=== PATIENT | male | born 1950 | race Caucasian/White ===

== ENCOUNTER 2017-02-25 09:49 | Inpatient (IN) ==
[2017-02-25] MEDS: SODIUM CHLORIDE 0.9% 1,000 ML IV SCH ×2 (11:45→20:00)
[2017-02-25] MEDS ORDERED: ASPIRIN 325 MG TABLET PO ONE (11:46)
[2017-02-25] MEDS ORDERED: DIAZEPAM 5 MG TABLET PO ONE (11:46)
[2017-02-25] MEDS ORDERED: diphenhydrAMINE CAP 25 MG CAPSULE PO ONE (11:46)
[2017-02-25] MEDS ORDERED: MAGNESIUM SULF RIDER 2 GM in PREMIX 1 EACH IV PRN (11:46)
[2017-02-25] MEDS ORDERED: POTASSIUM CHLORIDE RIDER 10 MEQ in PREMIX 1 EACH IV PRN (11:46)
--- NOTE | 2017-02-25 12:48 | History and Physical Update ---
Sedation H&P Update - History and Physical H&P was reviewed, the patient examined and there: are no changes in the patients condition since last H&P was completed. - Dictation Physical: refer to scanned H&P - Physical Exam Mental Status: alert and oriented Heart: regular rate and rhythm Lung: clear to auscultation Abdomen: within normal limits Vitals: within normal limits - Sedation Plan for Sedation: moderate Patient Consent: Procedure disscussed with patient and patinet has consented., Risks and benefits were discussed with patient,including infection,, bleeding, injury to surrounding structures, seizure, temporary nerve, Patient understands and accepts potential risks/benefits and agrees to, proceed. ASA Class: II Airway Assessment: Class II: Soft palate, uvula, fauces visible
[2017-02-25] MEDS ORDERED: HEPARIN/NACL 0.9% 2 UNITS/ML 1,000 ML IV ONE (12:51)
[2017-02-25] MEDS ORDERED: LIDOCAINE 1% 20 ML VIAL ONE (12:51)
[2017-02-25] MEDS ORDERED: DIAZEPAM 5 MG TABLET ONE (12:55)
[2017-02-25] MEDS ORDERED: diphenhydrAMINE CAP 25 MG CAPSULE ONE (12:55)
[2017-02-25] MEDS ORDERED: MIDAZOLAM 2 MG/2 ML VIAL ONE (13:02)
[2017-02-25] MEDS ORDERED: HYDROmorphone 2 MG/1 ML VIAL ONE (13:02)
[2017-02-25] MEDS ORDERED: ONDANSETRON 4 MG/2 ML VIAL IV PRN (14:10)
[2017-02-25] MEDS ORDERED: ACETAMINOPHEN 325 MG TABLET PO PRN (14:10)
[2017-02-25] MEDS ORDERED: NITROGLYCERIN SL 0.4 MG TABLET SL PRN (14:10)
[2017-02-25] MEDS ORDERED: ZALEPLON 5 MG CAPSULE PO PRN (14:10)
--- NOTE | 2017-02-25 14:10 | Cardiac Catheterization ---
Date of Procedure:: 02/25/17 Pre-op Diagnosis: Chest pain CAD Post-op diagnosis: same Procedure: Cardiac catheterization procedure note #1 left heart catheterization #2 selective coronary angiography #3 left ventriculography #4 GRANADO angiography Omnipaque was used for the procedure Description of procedure Following sterile preparation draping of the right groin, local anesthesia was achieved by infiltration with 1% Xylocaine. Using a Cook needle the right femoral artery was cannulated and a #6 sheath was inserted. A 6 Congolese pigtail catheter was introduced and advanced retrograde across the aortic valve into the left ventricle and the end-diastolic pressure was recorded. Left ventriculography was performed the ODEN projection using 24 cc of contrast material. A pullback recording was made across the aortic valve. The pigtail catheter change for a 6 Congolese left Tana catheter and left coronary angiography was performed in several ODEN and UZBEK projections. The catheter change for a 6 Congolese right Amplatz catheter and right coronary atrophy was performed in the UZBEK projection only. The catheter change for a 6 Congolese VIRIDIANA catheter and GRANADO angiography was performed in the UZBEK projection only. The catheter and sheath were then removed and the femoral arteriotomy site was sealed percutaneously minx closure device with prompt cessation of bleeding and prompt return of femoral and foot pulses. No complications ensued. The patient is transferred to telemetry in stable condition. Hemodynamic data Aortic pressure 127/66 mean of 89 Left ventricle 1 2 04/02 Selective coronary angiography The left main trunk is patent and trifurcates. The LAD is calcified and occluded proximally after the first septal leaflet or newspaper deliverer. There is trickle flow into a diagonal branch. the intermediate branch is totally occluded proximally. A large first OM branch extends out to the apex and has an 80% mid vessel stenosis. The dominant right coronary artery has severe ostial stenosis. The pressure damps 40 mm with catheterization with a right Amplatz or right Tana catheter. The left internal mammary artery is a 2.5 motor non-tortuous patent vessel. Left ventriculography There is anteroapical hypokinesis. Ejection fraction 55%. No mitral regurgitation. Conclusions #1 increased LVEDP 14 #2 anteroapical hypokinesis EF 55% #3 no mitral regurgitation #4 no aortic valve gradient #5 left main trunk patent, trifurcates #6 LAD-calcified, 100% proximal occlusion after first septal #7 occluded diagonal #8 intermediate branch-occluded proximally #9 circumflex system-80% mid large OM branch extends out the apex #10 dominant right coronary-severe ostial stenosis the pressure dams 40 mm with cannulation. The distal vessel provides right to left collaterals to several septal perforators #11 GRANADO-2.5 overnight tortuous patent vessel Disposition The patient has severe three-vessel CAD including an occluded proximal LAD. Ejection fraction 55% with significant myocardium at risk. Dr. Sotelo has been counsulted for multivessel CABG. He will continue normal saline hydration and and BMP rechecked in the morning. Cine pictures were reviewed with his son Jeremiah and [id number] Sonia. In addition, he will require aggressive lifestyle change and risk factor modification. Implants: No implants Anesthesia: moderate conscious sedation Surgeon / Physician: Meng Desai Estimated blood loss: minimal Specimens: none sent Condition: stable Disposition: floor - Medications / Follow-up
[2017-02-25] MEDS ORDERED: DEXTROSE 50% 25 GM/50 ML VIAL IV PRN ×2 (15:52)
[2017-02-25] MEDS ORDERED: GLUCAGON 1 MG VIAL IM PRN ×2 (15:52)
[2017-02-25] MEDS ORDERED: CEFUROXIME INJ 1,500 MG in SODIUM CHLORIDE 0.9% 100 ML IV ONE (15:52)
--- NOTE | 2017-02-25 15:52 | Cardiothoracic Progress Note ---
Cardiothoracic Subjective Interval history: Patient is a 66-year-old man with history of chest discomfort and cardiac catheterization this morning which showed critical coronary disease. Patient was advised to have bypass surgery and I agree with this recommendation. Patient is scheduled for bypass surgery Wednesday morning. Discussed at length with the patient and his family. Exam (Progress Note) - Constitutional Vitals: Period Temp Pulse Resp BP Sys/Taylor Pulse Ox Last 24 Hr 97.9 F-98.0 F 66-76 18-20 130-162/77-88 93-98
[2017-02-25] MEDS ORDERED: SODIUM CHLORIDE 0.9% 1,000 ML IV SCH (16:00)
[2017-02-25 17:14] LABS: Basophils % 0.4 % (0.0-0.8); Eosinophils % 0.8 % (0.00-10.9); Hematocrit 40.1 VOL% (42.0-52.0); Hemoglobin 14.6 GM/DL (14.0-18.0); Immature Granulocytes % 0.2 %; Immature Granulocytes Absolute 0.01 #; Lymphocytes # 1.2 10*3/uL (1.4-4.0); Lymphocytes % 25.6 % (21.2-54.2); Mean Corpuscular HGB Conc 36.4 GM/DL (32-36); Mean Corpuscular Hemoglobin 34 PG (27-34); Mean Corpuscular Volume 92.6 FL (87-102); Mean Platelet Volume 11.2 FL (9.6-12.0); Monocytes # 0.5 10*3/uL (0.11-0.8); Monocytes % 10.5 % (1.7-12.7); Neutrophils % 62.5 % (38.7-73.9); Platelet Count 177 T/CUMM (130-400); Red Blood Count 4.33 MC/CUMM (3.8-5.5); Red Cell Distribution Width 11.4 % (9.3-17.3); White Blood Count 4.9 T/CUMM (4-12)
--- NOTE | 2017-02-25 17:20 | Hospitalist Consult Note ---
Assessment and Plan (1) Coronary artery disease Status: Acute Current Visit: Yes (2) Acid reflux Status: Acute Current Visit: Yes (3) Hypertension Status: Acute Current Visit: Yes (4) Mild bump in glucose at clinic Status: Acute Assessment and plan: Our plan for this patient would be to check a chemistry on this patient monitor his Accu-Cheks before meals and at bedtime hold off on any insulin for now. Check A1c. Have medicines available for DT prophylaxis if needed. Patient is a daily alcohol user Current Visit: Yes History of Present Illness - Consult Narrative Reason for consult: Consult for diabetes/insulin infusion History of present illness: Mr. Hernandes is a 66 year old male with past medical history significant for hypertension coronary artery disease and reflux who had a heart cath today. Patient had significant lesions noted per the heart cath report and was referred to Dr. Sotelo for CABG. Dr. Sotelo consulted us for possible diabetes and insulin management. Patient did have a value of 121 at the clinic. Accu-Chek today is 78. CC: Meng Desai MD - Home Medications and Allergies Home Medications: Home Medications Medication Instructions Recorded Confirmed Type Aspirin [Ecotrin] 81 mg PO DAILY 02/24/17 02/25/17 History Losartan/Hydrochlorothiazide 1 each PO DAILY 02/24/17 02/25/17 History [Losartan-Hctz 50-12.5 mg Tab] Esomeprazole Magnesium [Nexium] 20 mg PO DAILY 02/25/17 02/25/17 History Allergies/Adverse Reactions: Allergies Allergy/AdvReac Type Severity Reaction Status Date / Time No Known Allergies Allergy Verified 02/25/17 10:55 Medical,Surgical,& Family Hx - Medical History Cardio: History of: CAD, Hypertension Neurology: No history of: Seizures Gastrointestinal: History of: GERD - Surgical History Cardiac Surgeries: Sugical HX of: Cardiac Catheterization (02/25/17) - Family History Family History: Reports;: Family Diabetes, Family Hypertension - Social History Smoking Status: Current every day smoker Frequency of Alcohol Use: Frequently Type of Drug Use: None 12 point system: reviewed and no additional remarkable complaints except as stated Exam - Constitutional Vitals: Period Temp Pulse Resp BP Sys/Taylor Pulse Ox Last 24 Hr 97.9 F-98.0 F 66-76 16-20 130-162/75-89 93-98 General appearance: normal weight - Head Head exam: Present: normal inspection - Eye Eye exam: Present: EOMI Pupils: Present: BECKY - ENT ENT exam: Present: normal exam - Neck Neck exam: Present: normal inspection - Respiratory Respiratory exam: Present: clear to auscultation bilaterally - Cardiovascular Cardiovascular exam: Present: regular rate and rhythm - GI/Abdominal GI/Abdominal exam: Present: normal bowel sounds - Extremities Exam Extremities exam: Present: normal inspection - Back Exam Back exam: Present: normal inspection - Neurological Exam Neurological exam: Present: alert, oriented X3 - Psychiatric Psychiatric exam: Present: normal affect, normal mood Results - Labs CBC & BMP: 02/25/17 16:24 Quality Measures - VTE Contraindication to Pharmacological VTE Prophylaxis: High Risk of Bleeding
[2017-02-25] MEDS ORDERED: chlordiazePOXIDE 25 MG CAPSULE PO PRN (17:24)
[2017-02-25 17:40] LABS: ABG Base Excess -0.1 MMOL/L (-2.5-2.5); ABG HCO3 24.3 MMOL/L (20-26); ABG PCO2 40.9 MM HG (35-48); ABG PH 7.391 (7.35-7.45); ABG PO2 81.8 MM HG (80-95); ABG TCO2 21.3 MMOL/L (23-27); Allen Test Positive; Pt O2 Delivery Device Room Air
[2017-02-25 18:04] LABS: Albumin 3.4 G/DL (3.4-5.0); Calcium 8.7 MG/DL (8.5-10.1); Osmolality,Calculated 275.5 MOS/KG (273-304); Potassium 3.7 MMOL/L (3.5-5.1)
--- NOTE | 2017-02-25 18:58 | XRay Report ---
Portable chest. Indication: Coronary artery disease. The heart is borderline enlarged. The pulmonary vasculature is normal. The left lung is clear. Platelike atelectasis is present at the right lung base resulting in elevation of the right hemidiaphragm. No pneumothorax or pleural effusion. Unremarkable osseous structures. Impression: Borderline cardiomegaly. Right basilar atelectasis. PROCEDURE INTERPRETED AT [facility] DEPARTMENT OF RADIOLOGY Final Report Signed by: Dr. Dominga Robles
[2017-02-25] MEDS ORDERED: ROSUVASTATIN 20 MG TABLET PO SCH (21:00)
[2017-02-25] MEDS: CHLORHEXIDINE 0.12% ORAL RINSE 60 ML BOTTLE SWISH/SPIT SCH (21:56)
[2017-02-25] MEDS: CHLORHEXIDINE 4% SOLN 118 ML BOTTLE TOP SCH (21:57)
[2017-02-26] MEDS: SODIUM CHLORIDE 0.9% 1,000 ML IV SCH ×2 (03:15→13:23)
[2017-02-26 04:38] LABS: Calcium 8.5 MG/DL (8.5-10.1); Osmolality,Calculated 279.3 MOS/KG (273-304); Potassium 3.6 MMOL/L (3.5-5.1)
[2017-02-26] MEDS: CHLORHEXIDINE 4% SOLN 118 ML BOTTLE TOP SCH ×2 (04:52→08:55)
[2017-02-26] MEDS: CHLORHEXIDINE 0.12% ORAL RINSE 60 ML BOTTLE SWISH/SPIT SCH ×3 (04:53→21:15)
[2017-02-26] MEDS ORDERED: TISSUE ADHESIVE 1 EACH APPLICATOR TOP ONE (05:30)
[2017-02-26] MEDS ORDERED: PAPAVERINE 60 MG/2 ML VIAL ONE (05:30)
[2017-02-26] MEDS ORDERED: VANCOMYCIN 1,000 MG VIAL ONE (05:31)
[2017-02-26] MEDS ORDERED: FAMOTIDINE 20 MG/2 ML VIAL IV ONE (06:00)
[2017-02-26] MEDS ORDERED: CEFUROXIME INJ 1,500 MG in SODIUM CHLORIDE 0.9% 100 ML IV ONE (06:00)
[2017-02-26] MEDS ORDERED: LORazepam 1 MG TABLET PO ONE (06:00)
[2017-02-26] MEDS: METOPROLOL TARTRATE 50 MG TABLET PO SCH ×2 (06:06→08:54)
[2017-02-26] MEDS: LOSARTAN/HCTZ 50-12.5 MG TABLET PO SCH ×2 (06:06→08:53)
--- NOTE | 2017-02-26 06:10 | EKG Report ---
Stationary ECG Study [facility] Test Date: 02/25/2017 4:50:32 PM Pat Name: GINA TOBIAS Department: Room: 283 Gender: M Team Supervisor: HUAN : 1950 Requested by: Michele Alvares Order Number: [id number] Reading MD: MARIA DEL CARMEN PECK Intervals [place] Rate: 65 P: 55 [place]: 198 QRS: 3 QRSD: 85 T: 79 QT: 406 QTc: 417 Interpretive Statements SINUS RHYTHM SEPTAL MYOCARDIAL INFARCTION, OF INDETERMINATE AGE Electronically Signed On 02-28-17 15:05:11 CDT by MARIA DEL CARMEN PECK [email or web address]
[2017-02-26] MEDS ORDERED: NITROPRUSSIDE 50 MG/2 ML VIAL ONE (07:33)
[2017-02-26] MEDS ORDERED: POTASSIUM CHLORIDE RIDER 100 ML IV ONE (07:34)
[2017-02-26] MEDS ORDERED: CALCIUM CHLORIDE 1,000 MG/10 ML SYRINGE IV ONE (07:34)
[2017-02-26 07:51] LABS: ABG Base Excess 0.5 MMOL/L (-2.5-2.5); ABG HCO3 24.9 MMOL/L (20-26); ABG Oxygen Saturation 99.7 % (95-100); ABG PCO2 35.4 MM HG (35-48); ABG PH 7.442 (7.35-7.45); Glucose Heart Surgery 100 MG/DL (74-106); Hematocrit Heart Surgery 40.3 PERCENT (42-52); Hemoglobin Heart Surgery 13.1 G/DL (14.0-18.0); Ionized Calcium Arterial 1.17 MMOL/L (1.21-1.46); PCO2 Patient Temp Arterial 35.4 MMHG; PH Patient Temp Arterial 7.442; Patient Temperature 37 CELCIUS; Potassium Heart/CVR 3.5 MMOL/L (3.5-5.1); Sodium Heart/CVR 136 MMOL/L (135-145)
[2017-02-26 07:56] LABS: Apearance,Urine CLEAR (Clear); Bilirubin,Urine Negative (Negative); Blood, Urine Moderate mg/dL (Negative); Glucose,Urine (UA) Negative (Negative); Ketones,Urine 20 mg/dL (Negative); Mucus,Urine Occasional /LPF (Occasional); Nitrite,Urine Negative (Negative); Protein,Urine Negative; RBC,Urine 1 /HPF (0-4); Urine Color Yellow (Yellow); Urine Urobilinogen < 2.0 EU/DL (0.2-1.0); WBC,Urine 5 /HPF (0-6)
[2017-02-26 08:59] LABS: Hematocrit Heart Surgery 28.3 PERCENT (42-52); Hemoglobin Heart Surgery 9.1 G/DL (14.0-18.0); PCO2 Patient Temp Venous 37.1 MM HG; PH Patient Temp Venous 7.431; Potassium Heart/CVR 3.6 MMOL/L (3.5-5.1); VBG Base Excess 0.6 MEQ/L (0-4); VBG HCO3 24.7 MEQ/L (24-28); VBG Oxygen Saturation 78.4 %; VBG PCO2 40.8 MMHG (41-51); VBG PH 7.402; VBG PO2 42.6 MMHG (17-40)
[2017-02-26] MEDS ORDERED: MULTIVITAMIN (CENTRUM) TABLET PO SCH (09:00)
[2017-02-26] MEDS ORDERED: FOLIC ACID 1 MG TABLET PO SCH (09:00)
[2017-02-26] MEDS ORDERED: ASPIRIN EC 81 MG TABLET PO SCH (09:00)
[2017-02-26] MEDS ORDERED: THIAMINE 100 MG TABLET PO SCH (09:00)
[2017-02-26] MEDS ORDERED: PANTOPRAZOLE 40 MG TABLET PO SCH (09:00)
[2017-02-26 09:34] LABS: Hematocrit Heart Surgery 31.6 PERCENT (42-52); Hemoglobin Heart Surgery 10.2 G/DL (14.0-18.0); PCO2 Patient Temp Venous 40.4 MM HG; PH Patient Temp Venous 7.408; PO2 Patient Temp Venous 38.7 MM HG; Potassium Heart/CVR 5.1 MMOL/L (3.5-5.1); VBG Base Excess 0.8 MEQ/L (0-4); VBG HCO3 24.7 MEQ/L (24-28); VBG Oxygen Saturation 73.3 %; VBG PCO2 40.4 MMHG (41-51); VBG PH 7.408; VBG PO2 38.7 MMHG (17-40)
[2017-02-26 10:13] LABS: ABG Base Excess 0.1 MMOL/L (-2.5-2.5); ABG HCO3 24.5 MMOL/L (20-26); ABG Oxygen Saturation 99.3 % (95-100); ABG PCO2 37.3 MM HG (35-48); ABG PH 7.421 (7.35-7.45); ABG TCO2 21.3 MMOL/L (23-27); Glucose Heart Surgery 194 MG/DL (74-106); Hematocrit Heart Surgery 37.8 PERCENT (42-52); Hemoglobin Heart Surgery 12.3 G/DL (14.0-18.0); Ionized Calcium Arterial 1.34 MMOL/L (1.21-1.46); PCO2 Patient Temp Arterial 37.3 MMHG; PH Patient Temp Arterial 7.421; Patient Temperature 37 CELCIUS; Potassium Heart/CVR 3.9 MMOL/L (3.5-5.1); Sodium Heart/CVR 136 MMOL/L (135-145)
[2017-02-26] MEDS ORDERED: ALBUMIN 25% 25 GM/100 ML VIAL IV ONE (10:26)
[2017-02-26] MEDS ORDERED: DEXTROSE 5% KCL 20 MEQ 20 MEQ/1,000 ML BAG IV ONE (10:26)
[2017-02-26] MEDS ORDERED: SODIUM BICARBONATE 50 MEQ/50 ML VIAL IV ONE (10:26)
[2017-02-26] MEDS ORDERED: PROTAMINE SULFATE 250 MG/25 ML VIAL IV ONE (10:26)
[2017-02-26] MEDS ORDERED: MAGNESIUM SULFATE 1 GM/2 ML VIAL ONE (10:26)
[2017-02-26] MEDS ORDERED: FUROSEMIDE 20 MG/2 ML VIAL ONE (10:29)
[2017-02-26] MEDS ORDERED: PROTAMINE SULFATE 50 MG/5 ML VIAL IV ONE ×3 (10:29→11:30)
[2017-02-26] MEDS ORDERED: MANNITOL 12.5 GM/50 ML VIAL IV ONE (10:29)
[2017-02-26] MEDS ORDERED: methylPREDNISolone SOD SUC 1,000 MG/8 ML VIAL ONE (10:29)
[2017-02-26] MEDS ORDERED: HEPARIN 10,000 UNIT/10 ML VIAL ONE (10:29)
[2017-02-26] MEDS ORDERED: POTASSIUM CHLORIDE 20 MEQ/10 ML VIAL ONE (10:30)
[2017-02-26] MEDS ORDERED: MIDAZOLAM 10 MG/2 ML VIAL ONE (11:24)
[2017-02-26] MEDS ORDERED: LACTATED RINGERS 2,000 ML IV ONE (11:24)
[2017-02-26] MEDS ORDERED: SUFentanil 250 MCG/5 ML AMP ONE (11:24)
[2017-02-26] MEDS ORDERED: SODIUM CHLORIDE 0.9% 1,000 ML IV ONE (11:24)
[2017-02-26] MEDS ORDERED: ePHEDrine 50 MG/ML AMP ONE (11:24)
[2017-02-26] MEDS ORDERED: SEVOFLURANE 1 UNIT/15 MINUTE INH ONE (11:24)
[2017-02-26] MEDS ORDERED: SODIUM CHLORIDE 0.9% 500 ML IV ONE (11:24)
[2017-02-26 11:31] LABS: ABG Base Excess 1.2 MMOL/L (-2.5-2.5); ABG HCO3 25.5 MMOL/L (20-26); ABG Oxygen Saturation 98.9 % (95-100); ABG PCO2 36.2 MM HG (35-48); ABG PH 7.445 (7.35-7.45); ABG TCO2 21.6 MMOL/L (23-27); Glucose Heart Surgery 180 MG/DL (74-106); Hematocrit Heart Surgery 39.8 PERCENT (42-52); Hemoglobin Heart Surgery 12.9 G/DL (14.0-18.0); Potassium Heart/CVR 3.5 MMOL/L (3.5-5.1)
[2017-02-26 11:41] LABS: Basophils % 0.2 % (0.0-0.8); Eosinophils % 0.3 % (0.00-10.9); Hematocrit 36.1 VOL% (42.0-52.0); Hemoglobin 13.1 GM/DL (14.0-18.0); Immature Granulocytes % 0.7 %; Immature Granulocytes Absolute 0.04 #; Lymphocytes # 0.7 10*3/uL (1.4-4.0); Lymphocytes % 10.9 % (21.2-54.2); Mean Corpuscular HGB Conc 36.3 GM/DL (32-36); Mean Corpuscular Hemoglobin 34 PG (27-34); Monocytes # 0.4 10*3/uL (0.11-0.8); Neutrophils # 4.9 10*3/uL (1.4-7.4); Neutrophils % 80.9 % (38.7-73.9); Platelet Count 136 T/CUMM (130-400); Red Blood Count 3.84 MC/CUMM (3.8-5.5); Red Cell Distribution Width 11.6 % (9.3-17.3)
[2017-02-26 11:47] LABS: INR 1.3; PT Patient Result 13.6 SECS; Partial Thromboplastin Time 27.9 SECS (0-40)
[2017-02-26 11:55] LABS: Albumin 3.3 G/DL (3.4-5.0); Bilirubin,Total 2.4 MG/DL (0.2-1.0); Calcium 8.8 MG/DL (8.5-10.1); Potassium 3.6 MMOL/L (3.5-5.1); Total Protein 5.6 G/DL (6.4-8.3)
[2017-02-26] MEDS ORDERED: VECURONIUM 10 MG VIAL IV PRN ×2 (11:55)
[2017-02-26] MEDS ORDERED: CALCIUM CHLORIDE 1,000 MG/10 ML SYRINGE IV PRN (11:55)
[2017-02-26] MEDS ORDERED: MORPHINE 2 MG/1 ML SYRINGE IV PRN (11:55)
[2017-02-26] MEDS ORDERED: ONDANSETRON 4 MG/2 ML VIAL IV PRN (11:55)
[2017-02-26] MEDS ORDERED: DEXTROSE 50% 25 GM/50 ML VIAL IV PRN ×2 (11:55)
[2017-02-26] MEDS ORDERED: MORPHINE 10 MG/1 ML VIAL IV PRN (11:55)
[2017-02-26] MEDS ORDERED: MIDAZOLAM 2 MG/2 ML VIAL IV PRN (11:55)
[2017-02-26] MEDS ORDERED: MIDAZOLAM 10 MG/2 ML VIAL IV PRN (11:55)
[2017-02-26] MEDS ORDERED: PHENYLEPHRINE DRIP 40 MG/250 ML PREMIX IV PRN (11:55)
[2017-02-26] MEDS ORDERED: INSULIN REGULAR 100 UNIT/ML IV PRN (11:55)
[2017-02-26] MEDS ORDERED: MAGNESIUM SULF RIDER 2 GM in PREMIX 1 EACH IV PRN (11:55)
[2017-02-26] MEDS ORDERED: MAGNESIUM SULF RIDER 4 GM in PREMIX 1 EACH IV PRN (11:55)
[2017-02-26] MEDS ORDERED: LACTATED RINGERS 250 ML IV PRN (11:55)
[2017-02-26] MEDS ORDERED: ACETAMINOPHEN 650 MG SUPP RECTAL PRN (11:55)
[2017-02-26] MEDS ORDERED: NITROPRUSSIDE 100 MG in DEXTROSE 5% 250 ML IV PRN (11:55)
[2017-02-26] MEDS ORDERED: INSULIN REGULAR 100 UNIT/ML IV ONE (11:55)
[2017-02-26] MEDS ORDERED: POTASSIUM CHLORIDE RIDER 10 MEQ in PREMIX 1 EACH IV PRN (11:55)
[2017-02-26] MEDS ORDERED: INSULIN REGULAR DRIP 100 ML IV SCH (12:00)
[2017-02-26] MEDS ORDERED: SODIUM CHLORIDE 0.45% 1,000 ML IV SCH ×2 (12:00)
--- NOTE | 2017-02-26 12:04 | Operative Note ---
Date of procedure: 02/26/17 Pre-op diagnosis: Coronary artery disease Post-op diagnosis: same Procedure: Procedure: Coronary bypass grafting 2 with saphenous vein graft to the obtuse marginal and right coronary arteries. Findings:: Patient is a 66-year-old man who presented with increasing substernal chest pain and a cardiac catheterization demonstrating critical disease of the obtuse marginal and right coronary arteries and total occlusion of the anterior descending coronary artery. Time of surgery the anterior descending coronary artery was not felt to be bypassable as no suitable segment of the artery appeared to be able to receive a bypass graft. Vein grafts were placed to the obtuse marginal and right coronary arteries which were large vessels were free of disease at the site of anastomosis. Patient tolerated procedure well and was returned to recovery in satisfactory condition. Procedure: Patient brought to the operating room placed in the operating table in supine position. After satisfactory induction of general anesthesia the chest abdomen and legs were prepped and draped in sterile fashion. Greater saphenous vein was harvested from the right lower leg and prepared as an arterial graft. Incision in the leg was closed with 3-0 subcutaneous Monocryl and 3-0 subcuticular Monocryl. Standard sternotomy incision was made and the heart was suspended in a pericardial after sternal division. Patient was prepared for cardiopulmonary bypass with systemic heparinization and cannulation of the ascending aorta and right atrium. Cardiopulmonary bypass was begun and aorta was crossclamped and the heart arrested with cardioplegia solution injected into the aortic root. Heart was protected during the period of crossclamping with topical saline slush. Distal anastomoses were constructed as above and then aorta was unclamped reestablishing cardiac action. Proximal anastomoses were constructed between the ascending aorta and the inflow ends of the saphenous vein grafts. Following this the patient was weaned from cardiopulmonary bypass without difficulty and heparin effect reversed with protamine. Decannulation was carried out in a defects in the ascending aorta and right atrium closed with 3-0 Prolene. Operative field was inspected for hemostasis and this was considered adequate the incision was closed with interrupted stainless steel wire and the sternum 0 Monopril in the presternal fascia and 3-0 Monocryl in the skin. 2 chest tubes were left in the anterior mediastinum and brought out through separate stab incisions. Sterile dressings were applied the patient was returned to recovery in satisfactory condition. Anesthesia: GETA Surgeon / Physician: Michele Sotelo Estimated blood loss: other (Unable to determine because of cardiopulmonary bypass) Condition: stable Disposition: ICU Results - Labs CBC & BMP: 02/26/17 11:12 02/26/17 11:25 Discharge Plan - Discharge Medications No Action Aspirin [Ecotrin] 81 mg PO DAILY Losartan/Hydrochlorothiazide [Losartan-Hctz 50-12.5 mg Tab] 1 each PO DAILY Esomeprazole Magnesium [Nexium] 20 mg PO DAILY - Follow Up or Referral - Forms/Instructions Instructions: How to Stop Smoking (GEN), Heart Healthy Diet (GEN), Cigarette Smoking and Your Health (GEN), Coronary Artery Bypass Graft, Estimator And Drafter ( GEN), Sternal Precautions (GEN)
[2017-02-26 12:06] LABS: Bilirubin,Total 1.1 MG/DL (0.2-1.0)
--- NOTE | 2017-02-26 12:07 | XRay Report ---
History: Endotracheal tube placement Date: 02/26/2017 Study: Chest x-ray AP portable Comparison exam: 02/25/2017 The endotracheal tube, nasogastric tube, and right IJ central line are in satisfactory position. The patient is status post interval median sternotomy. Chest drainage tubes overlie the mediastinum and left chest wall. No convincing pneumothorax of significance is identified. There is mild platelike subsegmental atelectasis in the right mid to lower lung. There is mild cardiomegaly. The mediastinal contours are stable. There is no significant pleural effusion. Osseous structures are unchanged. Impression: The supporting tubes are in generally satisfactory position. There is no obvious pneumothorax. There is mild platelike atelectasis in the right lung base PROCEDURE INTERPRETED AT [facility] DEPARTMENT OF RADIOLOGY Final Report Signed by: Dr. Nini Davis
[2017-02-26] MEDS: POTASSIUM CHLORIDE RIDER 20 MEQ in PREMIX 1 EACH IV PRN ×6 (12:31→23:05)
[2017-02-26] MEDS: KETOROLAC 30 MG/1 ML VIAL IV SCH ×2 (12:31→17:55)
[2017-02-26] MEDS: ALBUMIN 5% 12.5 GM in PREMIX 1 EACH IV PRN ×2 (12:47→12:57)
[2017-02-26 13:06] LABS: ABG Base Excess 0.9 MMOL/L (-2.5-2.5); ABG HCO3 25.3 MMOL/L (20-26); ABG Oxygen Saturation 99.2 % (95-100); ABG PCO2 40.7 MM HG (35-48); ABG PH 7.408 (7.35-7.45); ABG TCO2 22.8 MMOL/L (23-27); Glucose Heart Surgery 141 MG/DL (74-106); Hematocrit Heart Surgery 36.4 PERCENT (42-52); Hemoglobin Heart Surgery 11.8 G/DL (14.0-18.0); Potassium Heart/CVR 3.6 MMOL/L (3.5-5.1)
[2017-02-26 13:51] LABS: Troponin I Only 1.76 NG/ML (0.00-0.045)
[2017-02-26 15:03] LABS: ABG Base Excess 1.3 MMOL/L (-2.5-2.5); ABG HCO3 25.6 MMOL/L (20-26); ABG PH 7.403 (7.35-7.45); ABG TCO2 23.7 MMOL/L (23-27); Glucose Heart Surgery 103 MG/DL (74-106); Hematocrit Heart Surgery 32.7 PERCENT (42-52); Hemoglobin Heart Surgery 10.6 G/DL (14.0-18.0); Potassium Heart/CVR 3.8 MMOL/L (3.5-5.1)
--- NOTE | 2017-02-26 16:02 | Hospitalist Progress Note ---
Hospitalist: Subjective Interval history: Pt had 2V CABG. Pt intubated on the vent. No fever. Good UOP. On Insulin drip and Neonephrine. Exam - Constitutional Vitals: Period Temp Pulse Resp BP Sys/Taylor Pulse Ox Last 24 Hr 97.0 F-98.4 F 67-76 10-20 94-135/48-86 93-100 Exam: Intubated and sedated RRR no M CTAB nonlabored Chest wall wound vac in place Soft, NT, ND, hypoactive bowel sounds Warm no c/c/e RLE wrapped in XANDER bandage Results - Labs CBC & BMP: 02/26/17 11:12 02/26/17 11:25 - Impressions (1) Coronary artery disease s/p 2V CABG 02/26 Status: Acute Current Visit: Yes - mgt and post-op care per cardiology service and Dr. Sotelo (2) Expected acute blood loss anemia - transfuse as needed. Monitor H and H (3) Hypocalcemia - replace. Recheck (4) Hyperglycemia- resolved/ possibly reactive Status: Acute - HgbA1c <6. Cont perioperatively insulin drip with accuchecks (5) GERD Status: Acute Current Visit: Yes - PPI (6) Hypertension Status: Acute Current Visit: Yes - pt is hypotensive with neonephrine. (7) Chronic alcohol use (history) - Watch for withdrawals. Versed as needed Following along with you. Quality Measures - VTE Contraindication to Pharmacological VTE Prophylaxis: High Risk of Bleeding Specialty Discharge - Follow Up or Referrals
--- NOTE | 2017-02-26 17:15 | Anesthesia Post-Op ---
Anesthesia Post OP - Post Ansesthetic Evaluation Patient seen in post op: Yes Resp: other (vent) CV: other (neosyn infusion) Mental: within normal limits Temp: within normal limits Snau-[id number]-[id number]: within normal limits Nausea and Vomiting: within normal limits Pain: within normal limits
[2017-02-26 17:35] LABS: ABG Base Excess -1.4 MMOL/L (-2.5-2.5); ABG HCO3 23.3 MMOL/L (20-26); ABG Oxygen Saturation 97.7 % (95-100); ABG PH 7.344 (7.35-7.45); ABG TCO2 22.1 MMOL/L (23-27); Glucose Heart Surgery 154 MG/DL (74-106); Hematocrit Heart Surgery 34.8 PERCENT (42-52); Hemoglobin Heart Surgery 11.3 G/DL (14.0-18.0); Potassium Heart/CVR 4.3 MMOL/L (3.5-5.1)
[2017-02-26 19:19] LABS: ABG Base Excess -0.9 MMOL/L (-2.5-2.5); ABG HCO3 23.7 MMOL/L (20-26); ABG Oxygen Saturation 98.3 % (95-100); ABG PCO2 40.7 MM HG (35-48); ABG PH 7.381 (7.35-7.45); ABG TCO2 21.7 MMOL/L (23-27); Glucose Heart Surgery 155 MG/DL (74-106); Hematocrit Heart Surgery 33.9 PERCENT (42-52); Potassium Heart/CVR 4.3 MMOL/L (3.5-5.1)
--- NOTE | 2017-02-26 19:39 | Cardiology Progress Note ---
Assessment and Plan - Time spent with patient Time spent with patient: Greater than 30 minutes (1) Status post coronary artery bypass graft Status: Acute Assessment and plan: Minimal chest tube bleeding Good urine output Good blood pressure post events Watch for any signs or symptoms of ischemia or complications Current Visit: Yes (2) Acid reflux Status: Acute Current Visit: Yes (3) Coronary artery disease Status: Acute Current Visit: Yes (4) Hypertension Status: Acute Current Visit: Yes (5) Mild bump in glucose at clinic Status: Acute Current Visit: Yes Cardiology - PN: Subj Interval history: Still sleep postop. Exam (Progress Note) - Constitutional Vitals: Period Temp Pulse Resp BP Sys/Taylor Pulse Ox Last 24 Hr 97.0 F-98.6 F 68-86 10-20 93-135/45-74 93-100 Exam: HEENT: Pupils equal, reactive to light and accommodation Neck: NoJVD or bruit Lungs clear to auscultation Heart: Regular rhythm rate with normal S1 and S2. Apical S4 Abdomen: No hepatosplenomegaly Spine/extremities: No clubbing, cyanosis, or edema Neuro: Nonfocal Psych: No depression or anxiety Good urine output Minimal chest tube bleeding/output Normal sinus rhythm Result/EKG - Labs CBC & BMP: 02/26/17 11:12 02/26/17 11:25 Lab Results: I have reviewed the past 24 hour labs Labs: Laboratory Results - last 24 hr 02/25/17 02/25/17 02/25/17 16:24 16:24 17:14 WBC RBC Hgb Hct MCV MCH MCHC RDW Plt Count MPV Neut % (Auto) Lymph % (Auto) [place] % (Auto) Eos % (Auto) Baso % (Auto) Neut # (Auto) Lymph # (Auto) [place] # (Auto) Eos # (Auto) Baso # (Auto) Immature Gran % Nucleated RBC % Immature Gran # Nucleated RBCs # INR PT Patient/Control Mix Circ Anticoag PTT Patient Temperature ABG pH ABG pH at Pt Temp ABG pCO2 ABG pCO2 at Pt Temp ABG pO2 ABG pO2 at Pt Temp ABG HCO3 ABG Total CO2 ABG O2 Saturation ABG Base Excess ABG Sodium VBG pH VBG pCO2 VBG pO2 VBG HCO3 VBG Total CO2 VBG O2 Saturation VBG Base Excess Hemoglobin Hematocrit Ionized Calcium FiO2 Sodium Potassium Chloride Carbon Dioxide Anion Gap BUN Creatinine GFR Calculation BUN/Creatinine Ratio Glucose POC Glucose 78 Hemoglobin A1c Calculated Osmolality Calcium Venous Ioniz Calcium Magnesium Total Bilirubin 1.10 H AST ALT Alkaline Phosphatase Total Creatine Kinase CK-MB (CK-2) CK and CKMB Interp Troponin I B-Natriuretic Peptide Total Protein Albumin Globulin Albumin/Globulin Ratio Urine Color Urine Appearance Urine pH Ur Specific [place] Urine Protein Urine Glucose (UA) Urine Ketones Urine Blood Urine Nitrate Urine Bilirubin Urine Urobilinogen Urine Leukocytes Urine RBC Urine WBC Urine Mucus Ur Culture Indicated? Blood Type O POSITIVE Antibody Screen Negative Crossmatch See Detail 02/25/17 02/26/17 02/26/17 22:00 03:17 03:17 WBC RBC Hgb Hct MCV MCH MCHC RDW Plt Count MPV Neut % (Auto) Lymph % (Auto) [place] % (Auto) Eos % (Auto) Baso % (Auto) Neut # (Auto) Lymph # (Auto) [place] # (Auto) Eos # (Auto) Baso # (Auto) Immature Gran % Nucleated RBC % Immature Gran # Nucleated RBCs # INR PT Patient/Control Mix Circ Anticoag PTT Patient Temperature ABG pH ABG pH at Pt Temp ABG pCO2 ABG pCO2 at Pt Temp ABG pO2 ABG pO2 at Pt Temp ABG HCO3 ABG Total CO2 ABG O2 Saturation ABG Base Excess ABG Sodium VBG pH VBG pCO2 VBG pO2 VBG HCO3 VBG Total CO2 VBG O2 Saturation VBG Base Excess Hemoglobin Hematocrit Ionized Calcium FiO2 Sodium 141 Potassium 3.6 Chloride 104 Carbon Dioxide 28 Anion Gap 12.6 BUN 13 Creatinine 1.00 GFR Calculation 97 BUN/Creatinine Ratio 13.00 Glucose 86 POC Glucose 88 Hemoglobin A1c 5.1 Calculated Osmolality 279.3 Calcium 8.5 Venous Ioniz Calcium Magnesium Total Bilirubin AST ALT Alkaline Phosphatase Total Creatine Kinase CK-MB (CK-2) CK and CKMB Interp Troponin I B-Natriuretic Peptide Total Protein Albumin Globulin Albumin/Globulin Ratio Urine Color Urine Appearance Urine pH Ur Specific [place] Urine Protein Urine Glucose (UA) Urine Ketones Urine Blood Urine Nitrate Urine Bilirubin Urine Urobilinogen Urine Leukocytes Urine RBC Urine WBC Urine Mucus Ur Culture Indicated? Blood Type Antibody Screen Crossmatch 02/26/17 02/26/17 02/26/17 03:17 05:14 07:16 WBC RBC Hgb Hct MCV MCH MCHC RDW Plt Count MPV Neut % (Auto) Lymph % (Auto) [place] % (Auto) Eos % (Auto) Baso % (Auto) Neut # (Auto) Lymph # (Auto) [place] # (Auto) Eos # (Auto) Baso # (Auto) Immature Gran % Nucleated RBC % Immature Gran # Nucleated RBCs # INR PT Patient/Control Mix Circ Anticoag PTT Patient Temperature ABG pH ABG pH at Pt Temp ABG pCO2 ABG pCO2 at Pt Temp ABG pO2 ABG pO2 at Pt Temp ABG HCO3 ABG Total CO2 ABG O2 Saturation ABG Base Excess ABG Sodium VBG pH VBG pCO2 VBG pO2 VBG HCO3 VBG Total CO2 VBG O2 Saturation VBG Base Excess Hemoglobin Hematocrit Ionized Calcium FiO2 Sodium Potassium Chloride Carbon Dioxide Anion Gap BUN Creatinine GFR Calculation BUN/Creatinine Ratio Glucose POC Glucose 104 Hemoglobin A1c Calculated Osmolality Calcium Venous Ioniz Calcium Magnesium Total Bilirubin AST ALT Alkaline Phosphatase Total Creatine Kinase CK-MB (CK-2) CK and CKMB Interp Troponin I B-Natriuretic Peptide 136 H Total Protein Albumin Globulin Albumin/Globulin Ratio Urine Color Yellow Urine Appearance Clear Urine pH 7.0 Ur Specific [place] 1.010 Urine Protein Negative Urine Glucose (UA) Negative Urine Ketones 20 Urine Blood Moderate Urine Nitrate Negative Urine Bilirubin Negative Urine Urobilinogen < 2.0 H Urine Leukocytes Small H Urine RBC 1 Urine WBC 5 Urine Mucus Occasional Ur Culture Indicated? Results to follow Blood Type Antibody Screen Crossmatch 02/26/17 02/26/17 02/26/17 07:42 07:53 08:50 WBC RBC Hgb Hct MCV MCH MCHC RDW Plt Count 122 L D MPV Neut % (Auto) Lymph % (Auto) [place] % (Auto) Eos % (Auto) Baso % (Auto) Neut # (Auto) Lymph # (Auto) [place] # (Auto) Eos # (Auto) Baso # (Auto) Immature Gran % Nucleated RBC % Immature Gran # Nucleated RBCs # INR PT Patient/Control Mix Circ Anticoag PTT Patient Temperature 37 35 ABG pH 7.442 ABG pH at Pt Temp 7.442 7.431 ABG pCO2 35.4 ABG pCO2 at Pt Temp 35.4 37.1 ABG pO2 191.0 H ABG pO2 at Pt Temp 191.0 37.0 ABG HCO3 24.9 ABG Total CO2 21.0 L ABG O2 Saturation 99.7 ABG Base Excess 0.5 ABG Sodium 136 131 L VBG pH 7.402 VBG pCO2 40.8 L VBG pO2 42.6 H VBG HCO3 24.7 VBG Total CO2 23.5 VBG O2 Saturation 78.4 VBG Base Excess 0.6 Hemoglobin 13.1 L 9.1 L D Hematocrit 40.3 L 28.3 L Ionized Calcium 1.17 L FiO2 80.00 Sodium Potassium 3.5 3.6 Chloride Carbon Dioxide Anion Gap BUN Creatinine GFR Calculation BUN/Creatinine Ratio Glucose 100 244 H POC Glucose Hemoglobin A1c Calculated Osmolality Calcium Venous Ioniz Calcium 0.99 L Magnesium Total Bilirubin AST ALT Alkaline Phosphatase Total Creatine Kinase CK-MB (CK-2) CK and CKMB Interp Troponin I B-Natriuretic Peptide Total Protein Albumin Globulin Albumin/Globulin Ratio Urine Color Urine Appearance Urine pH Ur Specific [place] Urine Protein Urine Glucose (UA) Urine Ketones Urine Blood Urine Nitrate Urine Bilirubin Urine Urobilinogen Urine Leukocytes Urine RBC Urine WBC Urine Mucus Ur Culture Indicated? Blood Type Antibody Screen Crossmatch 02/26/17 02/26/17 02/26/17 09:30 10:10 10:10 WBC RBC Hgb Hct MCV MCH MCHC RDW Plt Count 84 L D MPV Neut % (Auto) Lymph % (Auto) [place] % (Auto) Eos % (Auto) Baso % (Auto) Neut # (Auto) Lymph # (Auto) [place] # (Auto) Eos # (Auto) Baso # (Auto) Immature Gran % Nucleated RBC % Immature Gran # Nucleated RBCs # INR PT Patient/Control Mix Circ Anticoag PTT Patient Temperature 37 37 ABG pH 7.421 ABG pH at Pt Temp 7.408 7.421 ABG pCO2 37.3 ABG pCO2 at Pt Temp 40.4 37.3 ABG pO2 140.0 H ABG pO2 at Pt Temp 38.7 140.0 ABG HCO3 24.5 ABG Total CO2 21.3 L ABG O2 Saturation 99.3 ABG Base Excess 0.1 ABG Sodium 132 L 136 VBG pH 7.408 VBG pCO2 40.4 L VBG pO2 38.7 VBG HCO3 24.7 VBG Total CO2 23.2 VBG O2 Saturation 73.3 VBG Base Excess 0.8 Hemoglobin 10.2 L 12.3 L D Hematocrit 31.6 L 37.8 L Ionized Calcium 1.34 FiO2 80.00 Sodium Potassium 5.1 3.9 Chloride Carbon Dioxide Anion Gap BUN Creatinine GFR Calculation BUN/Creatinine Ratio Glucose 232 H 194 H POC Glucose Hemoglobin A1c Calculated Osmolality Calcium Venous Ioniz Calcium 1.04 L Magnesium Total Bilirubin AST ALT Alkaline Phosphatase Total Creatine Kinase CK-MB (CK-2) CK and CKMB Interp Troponin I B-Natriuretic Peptide Total Protein Albumin Globulin Albumin/Globulin Ratio Urine Color Urine Appearance Urine pH Ur Specific [place] Urine Protein Urine Glucose (UA) Urine Ketones Urine Blood Urine Nitrate Urine Bilirubin Urine Urobilinogen Urine Leukocytes Urine RBC Urine WBC Urine Mucus Ur Culture Indicated? Blood Type Antibody Screen Crossmatch 02/26/17 02/26/17 02/26/17 11:12 11:12 11:15 WBC 6.0 RBC 3.84 Hgb 13.1 L Hct 36.1 L MCV 94.0 MCH 34 MCHC 36.3 H RDW 11.6 Plt Count 136 D MPV 11.0 Neut % (Auto) 80.9 H Lymph % (Auto) 10.9 L [place] % (Auto) 7.0 Eos % (Auto) 0.3 Baso % (Auto) 0.2 Neut # (Auto) 4.9 Lymph # (Auto) 0.7 L [place] # (Auto) 0.4 Eos # (Auto) 0.0 Baso # (Auto) 0.0 Immature Gran % 0.7 Nucleated RBC % 0.0 Immature Gran # 0.04 Nucleated RBCs # 0.00 INR 1.3 PT Patient/Control Mix 13.6 Circ Anticoag PTT 27.9 Patient Temperature ABG pH ABG pH at Pt Temp ABG pCO2 ABG pCO2 at Pt Temp ABG pO2 ABG pO2 at Pt Temp ABG HCO3 ABG Total CO2 ABG O2 Saturation ABG Base Excess ABG Sodium VBG pH VBG pCO2 VBG pO2 VBG HCO3 VBG Total CO2 VBG O2 Saturation VBG Base Excess Hemoglobin Hematocrit Ionized Calcium FiO2 Sodium Potassium Chloride Carbon Dioxide Anion Gap BUN Creatinine GFR Calculation BUN/Creatinine Ratio Glucose POC Glucose Hemoglobin A1c Calculated Osmolality Calcium Venous Ioniz Calcium Magnesium 2.1 Total Bilirubin AST ALT Alkaline Phosphatase Total Creatine Kinase CK-MB (CK-2) CK and CKMB Interp Troponin I B-Natriuretic Peptide Total Protein Albumin Globulin Albumin/Globulin Ratio Urine Color Urine Appearance Urine pH Ur Specific [place] Urine Protein Urine Glucose (UA) Urine Ketones Urine Blood Urine Nitrate Urine Bilirubin Urine Urobilinogen Urine Leukocytes Urine RBC Urine WBC Urine Mucus Ur Culture Indicated? Blood Type Antibody Screen Crossmatch 02/26/17 02/26/17 02/26/17 11:15 11:25 11:25 WBC RBC Hgb Hct MCV MCH MCHC RDW Plt Count MPV Neut % (Auto) Lymph % (Auto) [place] % (Auto) Eos % (Auto) Baso % (Auto) Neut # (Auto) Lymph # (Auto) [place] # (Auto) Eos # (Auto) Baso # (Auto) Immature Gran % Nucleated RBC % Immature Gran # Nucleated RBCs # INR PT Patient/Control Mix Circ Anticoag PTT Patient Temperature ABG pH 7.445 ABG pH at Pt Temp ABG pCO2 36.2 ABG pCO2 at Pt Temp ABG pO2 151.0 H ABG pO2 at Pt Temp ABG HCO3 25.5 ABG Total CO2 21.6 L ABG O2 Saturation 98.9 ABG Base Excess 1.2 ABG Sodium VBG pH VBG pCO2 VBG pO2 VBG HCO3 VBG Total CO2 VBG O2 Saturation VBG Base Excess Hemoglobin 12.9 L Hematocrit 39.8 L Ionized Calcium FiO2 Sodium 143 Potassium 3.5 3.6 Chloride 107 Carbon Dioxide 24 Anion Gap 15.6 H BUN 11 Creatinine 0.90 GFR Calculation 110 BUN/Creatinine Ratio 12.00 Glucose 180 H 176 H POC Glucose Hemoglobin A1c Calculated Osmolality 287.0 Calcium 8.8 Venous Ioniz Calcium Magnesium Total Bilirubin 2.40 H AST 35 ALT 20 Alkaline Phosphatase 48 Total Creatine Kinase 142 CK-MB (CK-2) 11.4 H CK and CKMB Interp 8.0 Troponin I 1.760 H B-Natriuretic Peptide Total Protein 5.6 L Albumin 3.3 L Globulin 2.3 Albumin/Globulin Ratio 1.4 Urine Color Urine Appearance Urine pH Ur Specific [place] Urine Protein Urine Glucose (UA) Urine Ketones Urine Blood Urine Nitrate Urine Bilirubin Urine Urobilinogen Urine Leukocytes Urine RBC Urine WBC Urine Mucus Ur Culture Indicated? Blood Type Antibody Screen Crossmatch 02/26/17 02/26/17 02/26/17 12:59 14:05 14:54 WBC RBC Hgb Hct MCV MCH MCHC RDW Plt Count MPV Neut % (Auto) Lymph % (Auto) [place] % (Auto) Eos % (Auto) Baso % (Auto) Neut # (Auto) Lymph # (Auto) [place] # (Auto) Eos # (Auto) Baso # (Auto) Immature Gran % Nucleated RBC % Immature Gran # Nucleated RBCs # INR PT Patient/Control Mix Circ Anticoag PTT Patient Temperature ABG pH 7.408 7.403 ABG pH at Pt Temp ABG pCO2 40.7 42.0 ABG pCO2 at Pt Temp ABG pO2 149.0 H 117.0 H ABG pO2 at Pt Temp ABG HCO3 25.3 25.6 ABG Total CO2 22.8 L 23.7 ABG O2 Saturation 99.2 99.0 ABG Base Excess 0.9 1.3 ABG Sodium VBG pH VBG pCO2 VBG pO2 VBG HCO3 VBG Total CO2 VBG O2 Saturation VBG Base Excess Hemoglobin 11.8 L 10.6 L Hematocrit 36.4 L 32.7 L Ionized Calcium FiO2 Sodium Potassium 3.6 3.8 Chloride Carbon Dioxide Anion Gap BUN Creatinine GFR Calculation BUN/Creatinine Ratio Glucose 141 H 103 POC Glucose 112 H Hemoglobin A1c Calculated Osmolality Calcium Venous Ioniz Calcium Magnesium Total Bilirubin AST ALT Alkaline Phosphatase Total Creatine Kinase CK-MB (CK-2) CK and CKMB Interp Troponin I B-Natriuretic Peptide Total Protein Albumin Globulin Albumin/Globulin Ratio Urine Color Urine Appearance Urine pH Ur Specific [place] Urine Protein Urine Glucose (UA) Urine Ketones Urine Blood Urine Nitrate Urine Bilirubin Urine Urobilinogen Urine Leukocytes Urine RBC Urine WBC Urine Mucus Ur Culture Indicated? Blood Type Antibody Screen Crossmatch 02/26/17 02/26/17 02/26/17 16:15 17:28 18:15 WBC RBC Hgb Hct MCV MCH MCHC RDW Plt Count MPV Neut % (Auto) Lymph % (Auto) [place] % (Auto) Eos % (Auto) Baso % (Auto) Neut # (Auto) Lymph # (Auto) [place] # (Auto) Eos # (Auto) Baso # (Auto) Immature Gran % Nucleated RBC % Immature Gran # Nucleated RBCs # INR PT Patient/Control Mix Circ Anticoag PTT Patient Temperature ABG pH 7.344 L ABG pH at Pt Temp ABG pCO2 45.0 ABG pCO2 at Pt Temp ABG pO2 103.0 H ABG pO2 at Pt Temp ABG HCO3 23.3 ABG Total CO2 22.1 L ABG O2 Saturation 97.7 ABG Base Excess -1.4 ABG Sodium VBG pH VBG pCO2 VBG pO2 VBG HCO3 VBG Total CO2 VBG O2 Saturation VBG Base Excess Hemoglobin 11.3 L Hematocrit 34.8 L Ionized Calcium FiO2 Sodium Potassium 4.3 Chloride Carbon Dioxide Anion Gap BUN Creatinine GFR Calculation BUN/Creatinine Ratio Glucose 154 H POC Glucose 77 155 H Hemoglobin A1c Calculated Osmolality Calcium Venous Ioniz Calcium Magnesium Total Bilirubin AST ALT Alkaline Phosphatase Total Creatine Kinase CK-MB (CK-2) CK and CKMB Interp Troponin I B-Natriuretic Peptide Total Protein Albumin Globulin Albumin/Globulin Ratio Urine Color Urine Appearance Urine pH Ur Specific [place] Urine Protein Urine Glucose (UA) Urine Ketones Urine Blood Urine Nitrate Urine Bilirubin Urine Urobilinogen Urine Leukocytes Urine RBC Urine WBC Urine Mucus Ur Culture Indicated? Blood Type Antibody Screen Crossmatch 02/26/17 19:15 WBC RBC Hgb Hct MCV MCH MCHC RDW Plt Count MPV Neut % (Auto) Lymph % (Auto) [place] % (Auto) Eos % (Auto) Baso % (Auto) Neut # (Auto) Lymph # (Auto) [place] # (Auto) Eos # (Auto) Baso # (Auto) Immature Gran % Nucleated RBC % Immature Gran # Nucleated RBCs # INR PT Patient/Control Mix Circ Anticoag PTT Patient Temperature ABG pH 7.381 ABG pH at Pt Temp ABG pCO2 40.7 ABG pCO2 at Pt Temp ABG pO2 113.0 H ABG pO2 at Pt Temp ABG HCO3 23.7 ABG Total CO2 21.7 L ABG O2 Saturation 98.3 ABG Base Excess -0.9 ABG Sodium VBG pH VBG pCO2 VBG pO2 VBG HCO3 VBG Total CO2 VBG O2 Saturation VBG Base Excess Hemoglobin 11.0 L Hematocrit 33.9 L Ionized Calcium FiO2 Sodium Potassium 4.3 Chloride Carbon Dioxide Anion Gap BUN Creatinine GFR Calculation BUN/Creatinine Ratio Glucose 155 H POC Glucose Hemoglobin A1c Calculated Osmolality Calcium Venous Ioniz Calcium Magnesium Total Bilirubin AST ALT Alkaline Phosphatase Total Creatine Kinase CK-MB (CK-2) CK and CKMB Interp Troponin I B-Natriuretic Peptide Total Protein Albumin Globulin Albumin/Globulin Ratio Urine Color Urine Appearance Urine pH Ur Specific [place] Urine Protein Urine Glucose (UA) Urine Ketones Urine Blood Urine Nitrate Urine Bilirubin Urine Urobilinogen Urine Leukocytes Urine RBC Urine WBC Urine Mucus Ur Culture Indicated? Blood Type Antibody Screen Crossmatch Quality Measures - VTE Contraindication to Pharmacological VTE Prophylaxis: High Risk of Bleeding Specialty Discharge - Follow Up or Referrals Follow up with: Meng Desai MD [Physician] -
[2017-02-26] MEDS ORDERED: FUROSEMIDE 40 MG/4 ML VIAL IV ONE (19:51)
[2017-02-26] MEDS: CEFUROXIME INJ 1,500 MG in SODIUM CHLORIDE 0.9% 100 ML IV SCH (19:59)
[2017-02-26 21:08] LABS: ABG Base Excess -0.8 MMOL/L (-2.5-2.5); ABG HCO3 23.8 MMOL/L (20-26); ABG Oxygen Saturation 98.5 % (95-100); ABG PCO2 41.5 MM HG (35-48); ABG PH 7.377 (7.35-7.45); ABG TCO2 21.8 MMOL/L (23-27); Glucose Heart Surgery 155 MG/DL (74-106); Hematocrit Heart Surgery 35.1 PERCENT (42-52); Hemoglobin Heart Surgery 11.4 G/DL (14.0-18.0)
[2017-02-26 21:51] LABS: ABG Base Excess -0.6 MMOL/L (-2.5-2.5); ABG HCO3 23.9 MMOL/L (20-26); ABG Oxygen Saturation 98.2 % (95-100); ABG PCO2 40.2 MM HG (35-48); ABG PH 7.389 (7.35-7.45); ABG TCO2 21.8 MMOL/L (23-27); Glucose Heart Surgery 155 MG/DL (74-106); Hematocrit Heart Surgery 34.3 PERCENT (42-52); Hemoglobin Heart Surgery 11.1 G/DL (14.0-18.0); Potassium Heart/CVR 4.5 MMOL/L (3.5-5.1)
[2017-02-26 21:58] LABS: CKMB % 9.5 %; Troponin I Only 3.32 NG/ML (0.00-0.045)
[2017-02-26 22:42] LABS: ABG Base Excess -0.2 MMOL/L (-2.5-2.5); ABG HCO3 24.3 MMOL/L (20-26); ABG Oxygen Saturation 98.8 % (95-100); ABG PCO2 37.5 MM HG (35-48); ABG PH 7.415 (7.35-7.45); ABG TCO2 21.6 MMOL/L (23-27); Glucose Heart Surgery 146 MG/DL (74-106); Hematocrit Heart Surgery 33.5 PERCENT (42-52); Hemoglobin Heart Surgery 10.9 G/DL (14.0-18.0); Potassium Heart/CVR 4.2 MMOL/L (3.5-5.1)
[2017-02-27] MEDS: KETOROLAC 30 MG/1 ML VIAL IV SCH ×5 (00:01→23:17)
[2017-02-27 00:15] LABS: ABG Base Excess 0.8 MMOL/L (-2.5-2.5); ABG Oxygen Saturation 92.6 % (95-100); ABG PCO2 44.3 MM HG (35-48); ABG PH 7.387 (7.35-7.45); ABG PO2 64.5 MM HG (80-95); ABG TCO2 27.4 MMOL/L (23-27); Glucose Heart Surgery 114 MG/DL (74-106); Hemoglobin Heart Surgery 11.3 G/DL (14.0-18.0); Potassium Heart/CVR 4.4 MMOL/L (3.5-5.1)
[2017-02-27] MEDS: POTASSIUM CHLORIDE RIDER 20 MEQ in PREMIX 1 EACH IV PRN (02:47)
[2017-02-27] MEDS ORDERED: FUROSEMIDE 40 MG/4 ML VIAL IV ONE (04:15)
[2017-02-27 04:26] LABS: ABG Base Excess 0.5 MMOL/L (-2.5-2.5); ABG HCO3 24.9 MMOL/L (20-26); ABG Oxygen Saturation 96.8 % (95-100); ABG PCO2 42.7 MM HG (35-48); ABG PH 7.387 (7.35-7.45); ABG PO2 85.2 MM HG (80-95); ABG TCO2 23.2 MMOL/L (23-27); Glucose Heart Surgery 97 MG/DL (74-106); Hematocrit Heart Surgery 32.3 PERCENT (42-52); Hemoglobin Heart Surgery 10.4 G/DL (14.0-18.0); Potassium Heart/CVR 4.5 MMOL/L (3.5-5.1)
[2017-02-27 04:29] LABS: Basophils % 0.1 % (0.0-0.8); Hematocrit 29.1 VOL% (42.0-52.0); Hemoglobin 10.5 GM/DL (14.0-18.0); Immature Granulocytes % 0.6 %; Immature Granulocytes Absolute 0.09 #; Lymphocytes # 0.8 10*3/uL (1.4-4.0); Lymphocytes % 4.7 % (21.2-54.2); Mean Corpuscular HGB Conc 36.1 GM/DL (32-36); Mean Corpuscular Hemoglobin 34 PG (27-34); Mean Corpuscular Volume 94.5 FL (87-102); Mean Platelet Volume 10.9 FL (9.6-12.0); Monocytes # 1.6 10*3/uL (0.11-0.8); Monocytes % 9.6 % (1.7-12.7); Neutrophils # 13.9 10*3/uL (1.4-7.4); Platelet Count 143 T/CUMM (130-400); Red Blood Count 3.08 MC/CUMM (3.8-5.5); Red Cell Distribution Width 11.7 % (9.3-17.3); White Blood Count 16.3 T/CUMM (4-12)
[2017-02-27 05:05] LABS: Albumin 3.3 G/DL (3.4-5.0); Bilirubin,Direct 0.3 MG/DL (0.0-0.20); CKMB % 7.1 %; Calcium 8.1 MG/DL (8.5-10.1); Magnesium 1.9 MG/DL (1.8-2.4); Osmolality,Calculated 281.3 MOS/KG (273-304); Potassium 4.5 MMOL/L (3.5-5.1); Total Protein 5.3 G/DL (6.4-8.3)
[2017-02-27 05:06] LABS: Troponin I Only 2.93 NG/ML (0.00-0.045)
[2017-02-27 06:10] LABS: Band Neutrophils 1 % (0-10); Lymphocytes 7 % (20-55); Myelocytes 4 %; Platelet Estimate Adequate; Segmented Neutrophils 88 % (50-85); Total Cells Counted 100
--- NOTE | 2017-02-27 07:41 | EKG Report ---
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
[2017-02-27] MEDS: CEFUROXIME INJ 1,500 MG in SODIUM CHLORIDE 0.9% 100 ML IV SCH (08:06)
--- NOTE | 2017-02-27 08:10 | Cardiology Progress Note ---
Assessment and Plan - Time spent with patient Time spent with patient: Greater than 30 minutes Time spent discussing smoking cessation with patient: 3 to 10 minutes (1) Dyslipidemia Status: Chronic Assessment and plan: SEE PLAN OF CARE LISTED BELOW Current Visit: Yes (2) Tobacco abuse Status: Chronic Assessment and plan: SEE PLAN OF CARE LISTED BELOW Current Visit: Yes (3) Coronary artery disease Status: Chronic Assessment and plan: SEE PLAN OF CARE LISTED BELOW Current Visit: Yes (4) Hypertension Status: Chronic Assessment and plan: SEE PLAN OF CARE LISTED BELOW Current Visit: Yes (5) Status post coronary artery bypass graft Status: Chronic Assessment and plan: SEE PLAN OF CARE LISTED BELOW Current Visit: Yes Cardiology - PN: Subj Interval history: [place] 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 Identified was severe 3 vessel CAD. Patient underwent elective at the CABG (SVG to OM, SVG to RCA) February 26, 2017, performed by Dr. Sotelo. LVEF 55%. FEBRUARY 27, 2017: POD 1 CABG x 2. He is extubated, awake alert and oriented. Denies chest discomfort. He is off pressors, minimal chest tube drainage. Labs are stable this morning. Troponin trending down. Today, I suspect he will be moved to the ICU. We will continue to follow along. ASSESSMENT/PLAN: 1. CAD S/P CABG (SVG - OM, SVG - RCA) - POD 1. Continues to do well. Labs are stable. Encouraged deep breathing. 2. HYPERTENSION - will incorporate beta david and/or XANDER inhibitor when able. 3. DYSLIPIDEMIA - lipid-lowering agent when able 4. TOBACCOISM - encouraged smoking cessation for greater than 5 minutes today. Exam (Progress Note) - Constitutional Vitals: Period Temp Pulse Resp BP Sys/Taylor Pulse Ox Last 24 Hr 97.7 F-98.6 F 68-86 7-16 91-128/42-62 93-100 Exam: General: [Appears well with no apparent distress.] [Pleasant and cooperative. ] [Appears comfortable.] HEENT: [PERRL, normocephalic, atraumatic. Mucous membranes moist. No jaundice noted. Conjunctiva moist and clear, sclerae anicteric] Neck: No JVD/HJR, no thyromegaly or lymphadenopathy noted. No carotid bruit appreciated Cardiac: [Regular rate and rhythm.] [No obvious murmur rub or gallop.] 2 chest tubes intact with minimal drainage. EPWs intact Lungs: [Clear to auscultation without accessory muscle use to assist the respiratory pattern.] Using oxygen intermittently Abdomen: Soft, bowel sounds normoactive. Nontender and nondistended. No abdominal bruit or thrill noted. No masses noted. Musculoskeletal: No fluid collection. Decreased range of motion is noted. Extremities: No clubbing, cyanosis noted. [ No edema noted.] Upper extremity pulses 2+. Lower extremity pulses 2+. Capillary refill less than 3 seconds. Skin: No unusual lesions or rashes. No skin breakdown appreciated. Neuro: Awake, alert and oriented 3. Moves all extremities well without hemiparesis or paralysis. No essential tremor is appreciated. Result/EKG - Labs CBC & BMP: 02/27/17 04:20 02/27/17 04:20 Lab Results: I have reviewed the past 24 hour labs Labs: Laboratory Results - last 24 hr 02/25/17 02/25/17 02/26/17 16:24 16:24 08:50 WBC RBC Hgb Hct MCV MCH MCHC RDW Plt Count MPV Neut % (Auto) Lymph % (Auto) Pine % (Auto) Eos % (Auto) Baso % (Auto) Neut # (Auto) Lymph # (Auto) Pine # (Auto) Eos # (Auto) Baso # (Auto) Total Counted Immature Gran % Nucleated RBC % Immature Gran # Segmented Neutrophils Band Neutrophils Lymphocytes Myelocytes Nucleated RBCs # Platelet Estimate INR PT Patient/Control Mix Circ Anticoag PTT Patient Temperature 35 ABG pH ABG pH at Pt Temp 7.431 ABG pCO2 ABG pCO2 at Pt Temp 37.1 ABG pO2 ABG pO2 at Pt Temp 37.0 ABG HCO3 ABG Total CO2 ABG O2 Saturation ABG Base Excess ABG Sodium 131 L VBG pH 7.402 VBG pCO2 40.8 L VBG pO2 42.6 H VBG HCO3 24.7 VBG Total CO2 23.5 VBG O2 Saturation 78.4 VBG Base Excess 0.6 Hemoglobin 9.1 L D Hematocrit 28.3 L Potassium 3.6 Glucose 244 H Ionized Calcium FiO2 80.00 Sodium Chloride Carbon Dioxide Anion Gap BUN Creatinine GFR Calculation BUN/Creatinine Ratio POC Glucose Calculated Osmolality Calcium Venous Ioniz Calcium 0.99 L Magnesium Total Bilirubin 1.10 H Direct Bilirubin AST ALT Alkaline Phosphatase Total Creatine Kinase CK-MB (CK-2) CK and CKMB Interp Troponin I Total Protein Albumin Globulin Albumin/Globulin Ratio Blood Type O POSITIVE Antibody Screen Negative Crossmatch See Detail 02/26/17 02/26/17 02/26/17 09:30 10:10 10:10 WBC RBC Hgb Hct MCV MCH MCHC RDW Plt Count 84 L D MPV Neut % (Auto) Lymph % (Auto) Pine % (Auto) Eos % (Auto) Baso % (Auto) Neut # (Auto) Lymph # (Auto) Pine # (Auto) Eos # (Auto) Baso # (Auto) Total Counted Immature Gran % Nucleated RBC % Immature Gran # Segmented Neutrophils Band Neutrophils Lymphocytes Myelocytes Nucleated RBCs # Platelet Estimate INR PT Patient/Control Mix Circ Anticoag PTT Patient Temperature 37 37 ABG pH 7.421 ABG pH at Pt Temp 7.408 7.421 ABG pCO2 37.3 ABG pCO2 at Pt Temp 40.4 37.3 ABG pO2 140.0 H ABG pO2 at Pt Temp 38.7 140.0 ABG HCO3 24.5 ABG Total CO2 21.3 L ABG O2 Saturation 99.3 ABG Base Excess 0.1 ABG Sodium 132 L 136 VBG pH 7.408 VBG pCO2 40.4 L VBG pO2 38.7 VBG HCO3 24.7 VBG Total CO2 23.2 VBG O2 Saturation 73.3 VBG Base Excess 0.8 Hemoglobin 10.2 L 12.3 L D Hematocrit 31.6 L 37.8 L Potassium 5.1 3.9 Glucose 232 H 194 H Ionized Calcium 1.34 FiO2 80.00 Sodium Chloride Carbon Dioxide Anion Gap BUN Creatinine GFR Calculation BUN/Creatinine Ratio POC Glucose Calculated Osmolality Calcium Venous Ioniz Calcium 1.04 L Magnesium Total Bilirubin Direct Bilirubin AST ALT Alkaline Phosphatase Total Creatine Kinase CK-MB (CK-2) CK and CKMB Interp Troponin I Total Protein Albumin Globulin Albumin/Globulin Ratio Blood Type Antibody Screen Crossmatch 02/26/17 02/26/17 02/26/17 11:12 11:12 11:15 WBC 6.0 RBC 3.84 Hgb 13.1 L Hct 36.1 L MCV 94.0 MCH 34 MCHC 36.3 H RDW 11.6 Plt Count 136 D MPV 11.0 Neut % (Auto) 80.9 H Lymph % (Auto) 10.9 L Pine % (Auto) 7.0 Eos % (Auto) 0.3 Baso % (Auto) 0.2 Neut # (Auto) 4.9 Lymph # (Auto) 0.7 L Pine # (Auto) 0.4 Eos # (Auto) 0.0 Baso # (Auto) 0.0 Total Counted Immature Gran % 0.7 Nucleated RBC % 0.0 Immature Gran # 0.04 Segmented Neutrophils Band Neutrophils Lymphocytes Myelocytes Nucleated RBCs # 0.00 Platelet Estimate INR 1.3 PT Patient/Control Mix 13.6 Circ Anticoag PTT 27.9 Patient Temperature ABG pH ABG pH at Pt Temp ABG pCO2 ABG pCO2 at Pt Temp ABG pO2 ABG pO2 at Pt Temp ABG HCO3 ABG Total CO2 ABG O2 Saturation ABG Base Excess ABG Sodium VBG pH VBG pCO2 VBG pO2 VBG HCO3 VBG Total CO2 VBG O2 Saturation VBG Base Excess Hemoglobin Hematocrit Potassium Glucose Ionized Calcium FiO2 Sodium Chloride Carbon Dioxide Anion Gap BUN Creatinine GFR Calculation BUN/Creatinine Ratio POC Glucose Calculated Osmolality Calcium Venous Ioniz Calcium Magnesium 2.1 Total Bilirubin Direct Bilirubin AST ALT Alkaline Phosphatase Total Creatine Kinase CK-MB (CK-2) CK and CKMB Interp Troponin I Total Protein Albumin Globulin Albumin/Globulin Ratio Blood Type Antibody Screen Crossmatch 02/26/17 02/26/17 02/26/17 11:15 11:25 11:25 WBC RBC Hgb Hct MCV MCH MCHC RDW Plt Count MPV Neut % (Auto) Lymph % (Auto) Pine % (Auto) Eos % (Auto) Baso % (Auto) Neut # (Auto) Lymph # (Auto) Pine # (Auto) Eos # (Auto) Baso # (Auto) Total Counted Immature Gran % Nucleated RBC % Immature Gran # Segmented Neutrophils Band Neutrophils Lymphocytes Myelocytes Nucleated RBCs # Platelet Estimate INR PT Patient/Control Mix Circ Anticoag PTT Patient Temperature ABG pH 7.445 ABG pH at Pt Temp ABG pCO2 36.2 ABG pCO2 at Pt Temp ABG pO2 151.0 H ABG pO2 at Pt Temp ABG HCO3 25.5 ABG Total CO2 21.6 L ABG O2 Saturation 98.9 ABG Base Excess 1.2 ABG Sodium VBG pH VBG pCO2 VBG pO2 VBG HCO3 VBG Total CO2 VBG O2 Saturation VBG Base Excess Hemoglobin 12.9 L Hematocrit 39.8 L Potassium 3.5 3.6 Glucose 180 H 176 H Ionized Calcium FiO2 Sodium 143 Chloride 107 Carbon Dioxide 24 Anion Gap 15.6 H BUN 11 Creatinine 0.90 GFR Calculation 110 BUN/Creatinine Ratio 12.00 POC Glucose Calculated Osmolality 287.0 Calcium 8.8 Venous Ioniz Calcium Magnesium Total Bilirubin 2.40 H Direct Bilirubin AST 35 ALT 20 Alkaline Phosphatase 48 Total Creatine Kinase 142 CK-MB (CK-2) 11.4 H CK and CKMB Interp 8.0 Troponin I 1.760 H Total Protein 5.6 L Albumin 3.3 L Globulin 2.3 Albumin/Globulin Ratio 1.4 Blood Type Antibody Screen Crossmatch 02/26/17 02/26/17 02/26/17 12:59 14:05 14:54 WBC RBC Hgb Hct MCV MCH MCHC RDW Plt Count MPV Neut % (Auto) Lymph % (Auto) Pine % (Auto) Eos % (Auto) Baso % (Auto) Neut # (Auto) Lymph # (Auto) Pine # (Auto) Eos # (Auto) Baso # (Auto) Total Counted Immature Gran % Nucleated RBC % Immature Gran # Segmented Neutrophils Band Neutrophils Lymphocytes Myelocytes Nucleated RBCs # Platelet Estimate INR PT Patient/Control Mix Circ Anticoag PTT Patient Temperature ABG pH 7.408 7.403 ABG pH at Pt Temp ABG pCO2 40.7 42.0 ABG pCO2 at Pt Temp ABG pO2 149.0 H 117.0 H ABG pO2 at Pt Temp ABG HCO3 25.3 25.6 ABG Total CO2 22.8 L 23.7 ABG O2 Saturation 99.2 99.0 ABG Base Excess 0.9 1.3 ABG Sodium VBG pH VBG pCO2 VBG pO2 VBG HCO3 VBG Total CO2 VBG O2 Saturation VBG Base Excess Hemoglobin 11.8 L 10.6 L Hematocrit 36.4 L 32.7 L Potassium 3.6 3.8 Glucose 141 H 103 Ionized Calcium FiO2 Sodium Chloride Carbon Dioxide Anion Gap BUN Creatinine GFR Calculation BUN/Creatinine Ratio POC Glucose 112 H Calculated Osmolality Calcium Venous Ioniz Calcium Magnesium Total Bilirubin Direct Bilirubin AST ALT Alkaline Phosphatase Total Creatine Kinase CK-MB (CK-2) CK and CKMB Interp Troponin I Total Protein Albumin Globulin Albumin/Globulin Ratio Blood Type Antibody Screen Crossmatch 02/26/17 02/26/17 02/26/17 16:15 17:28 18:15 WBC RBC Hgb Hct MCV MCH MCHC RDW Plt Count MPV Neut % (Auto) Lymph % (Auto) Pine % (Auto) Eos % (Auto) Baso % (Auto) Neut # (Auto) Lymph # (Auto) Pine # (Auto) Eos # (Auto) Baso # (Auto) Total Counted Immature Gran % Nucleated RBC % Immature Gran # Segmented Neutrophils Band Neutrophils Lymphocytes Myelocytes Nucleated RBCs # Platelet Estimate INR PT Patient/Control Mix Circ Anticoag PTT Patient Temperature ABG pH 7.344 L ABG pH at Pt Temp ABG pCO2 45.0 ABG pCO2 at Pt Temp ABG pO2 103.0 H ABG pO2 at Pt Temp ABG HCO3 23.3 ABG Total CO2 22.1 L ABG O2 Saturation 97.7 ABG Base Excess -1.4 ABG Sodium VBG pH VBG pCO2 VBG pO2 VBG HCO3 VBG Total CO2 VBG O2 Saturation VBG Base Excess Hemoglobin 11.3 L Hematocrit 34.8 L Potassium 4.3 Glucose 154 H Ionized Calcium FiO2 Sodium Chloride Carbon Dioxide Anion Gap BUN Creatinine GFR Calculation BUN/Creatinine Ratio POC Glucose 77 155 H Calculated Osmolality Calcium Venous Ioniz Calcium Magnesium Total Bilirubin Direct Bilirubin AST ALT Alkaline Phosphatase Total Creatine Kinase CK-MB (CK-2) CK and CKMB Interp Troponin I Total Protein Albumin Globulin Albumin/Globulin Ratio Blood Type Antibody Screen Crossmatch 02/26/17 02/26/17 02/26/17 19:15 20:28 21:00 WBC RBC Hgb Hct MCV MCH MCHC RDW Plt Count MPV Neut % (Auto) Lymph % (Auto) Pine % (Auto) Eos % (Auto) Baso % (Auto) Neut # (Auto) Lymph # (Auto) Pine # (Auto) Eos # (Auto) Baso # (Auto) Total Counted Immature Gran % Nucleated RBC % Immature Gran # Segmented Neutrophils Band Neutrophils Lymphocytes Myelocytes Nucleated RBCs # Platelet Estimate INR PT Patient/Control Mix Circ Anticoag PTT Patient Temperature ABG pH 7.381 ABG pH at Pt Temp ABG pCO2 40.7 ABG pCO2 at Pt Temp ABG pO2 113.0 H ABG pO2 at Pt Temp ABG HCO3 23.7 ABG Total CO2 21.7 L ABG O2 Saturation 98.3 ABG Base Excess -0.9 ABG Sodium VBG pH VBG pCO2 VBG pO2 VBG HCO3 VBG Total CO2 VBG O2 Saturation VBG Base Excess Hemoglobin 11.0 L Hematocrit 33.9 L Potassium 4.3 Glucose 155 H Ionized Calcium FiO2 Sodium Chloride Carbon Dioxide Anion Gap BUN Creatinine GFR Calculation BUN/Creatinine Ratio POC Glucose 166 H Calculated Osmolality Calcium Venous Ioniz Calcium Magnesium Total Bilirubin Direct Bilirubin AST ALT Alkaline Phosphatase Total Creatine Kinase 187 D CK-MB (CK-2) 17.7 H D CK and CKMB Interp 9.5 Troponin I 3.320 H D Total Protein Albumin Globulin Albumin/Globulin Ratio Blood Type Antibody Screen Crossmatch 02/26/17 02/26/17 02/26/17 21:00 21:45 22:35 WBC RBC Hgb Hct MCV MCH MCHC RDW Plt Count MPV Neut % (Auto) Lymph % (Auto) Pine % (Auto) Eos % (Auto) Baso % (Auto) Neut # (Auto) Lymph # (Auto) Pine # (Auto) Eos # (Auto) Baso # (Auto) Total Counted Immature Gran % Nucleated RBC % Immature Gran # Segmented Neutrophils Band Neutrophils Lymphocytes Myelocytes Nucleated RBCs # Platelet Estimate INR PT Patient/Control Mix Circ Anticoag PTT Patient Temperature ABG pH 7.377 7.389 7.415 ABG pH at Pt Temp ABG pCO2 41.5 40.2 37.5 ABG pCO2 at Pt Temp ABG pO2 115.0 H 107.0 H 118.0 H ABG pO2 at Pt Temp ABG HCO3 23.8 23.9 24.3 ABG Total CO2 21.8 L 21.8 L 21.6 L ABG O2 Saturation 98.5 98.2 98.8 ABG Base Excess -0.8 -0.6 -0.2 ABG Sodium VBG pH VBG pCO2 VBG pO2 VBG HCO3 VBG Total CO2 VBG O2 Saturation VBG Base Excess Hemoglobin 11.4 L 11.1 L 10.9 L Hematocrit 35.1 L 34.3 L 33.5 L Potassium 4.0 4.5 4.2 Glucose 155 H 155 H 146 H Ionized Calcium FiO2 Sodium Chloride Carbon Dioxide Anion Gap BUN Creatinine GFR Calculation BUN/Creatinine Ratio POC Glucose Calculated Osmolality Calcium Venous Ioniz Calcium Magnesium Total Bilirubin Direct Bilirubin AST ALT Alkaline Phosphatase Total Creatine Kinase CK-MB (CK-2) CK and CKMB Interp Troponin I Total Protein Albumin Globulin Albumin/Globulin Ratio Blood Type Antibody Screen Crossmatch 02/27/17 02/27/17 02/27/17 00:10 01:20 02:03 WBC RBC Hgb Hct MCV MCH MCHC RDW Plt Count MPV Neut % (Auto) Lymph % (Auto) Pine % (Auto) Eos % (Auto) Baso % (Auto) Neut # (Auto) Lymph # (Auto) Pine # (Auto) Eos # (Auto) Baso # (Auto) Total Counted Immature Gran % Nucleated RBC % Immature Gran # Segmented Neutrophils Band Neutrophils Lymphocytes Myelocytes Nucleated RBCs # Platelet Estimate INR PT Patient/Control Mix Circ Anticoag PTT Patient Temperature ABG pH 7.387 ABG pH at Pt Temp ABG pCO2 44.3 ABG pCO2 at Pt Temp ABG pO2 64.5 L ABG pO2 at Pt Temp ABG HCO3 26.0 ABG Total CO2 27.4 H ABG O2 Saturation 92.6 L ABG Base Excess 0.8 ABG Sodium VBG pH VBG pCO2 VBG pO2 VBG HCO3 VBG Total CO2 VBG O2 Saturation VBG Base Excess Hemoglobin 11.3 L Hematocrit 33.0 L Potassium 4.4 Glucose 114 H Ionized Calcium FiO2 Sodium Chloride Carbon Dioxide Anion Gap BUN Creatinine GFR Calculation BUN/Creatinine Ratio POC Glucose 110 H 122 H Calculated Osmolality Calcium Venous Ioniz Calcium Magnesium Total Bilirubin Direct Bilirubin AST ALT Alkaline Phosphatase Total Creatine Kinase CK-MB (CK-2) CK and CKMB Interp Troponin I Total Protein Albumin Globulin Albumin/Globulin Ratio Blood Type Antibody Screen Crossmatch 02/27/17 02/27/17 02/27/17 03:10 04:20 04:20 WBC 16.3 H D RBC 3.08 L Hgb 10.5 L D Hct 29.1 L MCV 94.5 MCH 34 MCHC 36.1 H RDW 11.7 Plt Count 143 MPV 10.9 Neut % (Auto) 85.0 H Lymph % (Auto) 4.7 L Pine % (Auto) 9.6 Eos % (Auto) 0.0 Baso % (Auto) 0.1 Neut # (Auto) 13.9 H Lymph # (Auto) 0.8 L Pine # (Auto) 1.6 H Eos # (Auto) 0.0 Baso # (Auto) 0.0 Total Counted 100 Immature Gran % 0.6 Nucleated RBC % 0.0 Immature Gran # 0.09 Segmented Neutrophils 88 H Band Neutrophils 1 Lymphocytes 7 L Myelocytes 4 Nucleated RBCs # 0.00 Platelet Estimate Adequate INR PT Patient/Control Mix Circ Anticoag PTT Patient Temperature ABG pH ABG pH at Pt Temp ABG pCO2 ABG pCO2 at Pt Temp ABG pO2 ABG pO2 at Pt Temp ABG HCO3 ABG Total CO2 ABG O2 Saturation ABG Base Excess ABG Sodium VBG pH VBG pCO2 VBG pO2 VBG HCO3 VBG Total CO2 VBG O2 Saturation VBG Base Excess Hemoglobin Hematocrit Potassium 4.5 Glucose 90 Ionized Calcium FiO2 Sodium 141 Chloride 107 Carbon Dioxide 27 Anion Gap 11.5 BUN 16 Creatinine 1.10 GFR Calculation 86 BUN/Creatinine Ratio 14.00 POC Glucose 103 Calculated Osmolality 281.3 Calcium 8.1 L Venous Ioniz Calcium Magnesium 1.9 Total Bilirubin 1.00 Direct Bilirubin 0.30 H AST 37 ALT 20 Alkaline Phosphatase 38 L Total Creatine Kinase 225 D CK-MB (CK-2) 16.0 H CK and CKMB Interp 7.1 Troponin I 2.930 H Total Protein 5.3 L Albumin 3.3 L Globulin 2.0 L Albumin/Globulin Ratio 1.6 Blood Type Antibody Screen Crossmatch 02/27/17 02/27/17 02/27/17 04:20 05:10 06:21 WBC RBC Hgb Hct MCV MCH MCHC RDW Plt Count MPV Neut % (Auto) Lymph % (Auto) Pine % (Auto) Eos % (Auto) Baso % (Auto) Neut # (Auto) Lymph # (Auto) Pine # (Auto) Eos # (Auto) Baso # (Auto) Total Counted Immature Gran % Nucleated RBC % Immature Gran # Segmented Neutrophils Band Neutrophils Lymphocytes Myelocytes Nucleated RBCs # Platelet Estimate INR PT Patient/Control Mix Circ Anticoag PTT Patient Temperature ABG pH 7.387 ABG pH at Pt Temp ABG pCO2 42.7 ABG pCO2 at Pt Temp ABG pO2 85.2 ABG pO2 at Pt Temp ABG HCO3 24.9 ABG Total CO2 23.2 ABG O2 Saturation 96.8 ABG Base Excess 0.5 ABG Sodium VBG pH VBG pCO2 VBG pO2 VBG HCO3 VBG Total CO2 VBG O2 Saturation VBG Base Excess Hemoglobin 10.4 L Hematocrit 32.3 L Potassium 4.5 Glucose 97 Ionized Calcium FiO2 Sodium Chloride Carbon Dioxide Anion Gap BUN Creatinine GFR Calculation BUN/Creatinine Ratio POC Glucose 103 72 L Calculated Osmolality Calcium Venous Ioniz Calcium Magnesium Total Bilirubin Direct Bilirubin AST ALT Alkaline Phosphatase Total Creatine Kinase CK-MB (CK-2) CK and CKMB Interp Troponin I Total Protein Albumin Globulin Albumin/Globulin Ratio Blood Type Antibody Screen Crossmatch 02/27/17 07:07 WBC RBC Hgb Hct MCV MCH MCHC RDW Plt Count MPV Neut % (Auto) Lymph % (Auto) Pine % (Auto) Eos % (Auto) Baso % (Auto) Neut # (Auto) Lymph # (Auto) Pine # (Auto) Eos # (Auto) Baso # (Auto) Total Counted Immature Gran % Nucleated RBC % Immature Gran # Segmented Neutrophils Band Neutrophils Lymphocytes Myelocytes Nucleated RBCs # Platelet Estimate INR PT Patient/Control Mix Circ Anticoag PTT Patient Temperature ABG pH ABG pH at Pt Temp ABG pCO2 ABG pCO2 at Pt Temp ABG pO2 ABG pO2 at Pt Temp ABG HCO3 ABG Total CO2 ABG O2 Saturation ABG Base Excess ABG Sodium VBG pH VBG pCO2 VBG pO2 VBG HCO3 VBG Total CO2 VBG O2 Saturation VBG Base Excess Hemoglobin Hematocrit Potassium Glucose Ionized Calcium FiO2 Sodium Chloride Carbon Dioxide Anion Gap BUN Creatinine GFR Calculation BUN/Creatinine Ratio POC Glucose 115 H Calculated Osmolality Calcium Venous Ioniz Calcium Magnesium Total Bilirubin Direct Bilirubin AST ALT Alkaline Phosphatase Total Creatine Kinase CK-MB (CK-2) CK and CKMB Interp Troponin I Total Protein Albumin Globulin Albumin/Globulin Ratio Blood Type Antibody Screen Crossmatch - Diagnostic Findings Procedure: Chest x-ray: report reviewed by me - EKG EKG results: interpreted by me EKG shows: sinus rhythm Quality Measures - VTE Contraindication to Pharmacological VTE Prophylaxis: High Risk of Bleeding Specialty Discharge - Follow Up or Referrals Follow up with: Meng Desai MD [Physician] -
[2017-02-27] MEDS ORDERED: GLUCAGON 1 MG VIAL IM PRN ×3 (08:30→08:45)
[2017-02-27] MEDS ORDERED: DEXTROSE 50% 25 GM/50 ML VIAL IV PRN ×3 (08:30→08:45)
--- NOTE | 2017-02-27 08:42 | XRay Report ---
History is status post chest tube removal Comparison 02/26/2017 The heart is enlarged with sclerae prior median sternotomy. Anterior chest tubes have been removed. No pneumothorax seen. ET and NG tubes have been removed There remains mild atelectasis in the right lung base. No new infiltrates seen. Impression: 1. Interval removal of supportive devices with continued right basilar atelectasis PROCEDURE INTERPRETED AT [facility] DEPARTMENT OF RADIOLOGY Final Report Signed by: Dr. Denise Robles
--- NOTE | 2017-02-27 08:44 | Cardiothoracic Progress Note ---
Cardiothoracic Subjective Interval history: Patient is awake alert and extubated. He has had a stable night and vital signs are stable this morning he is breathing comfortably. Urine output has been good and creatinine is within normal limits. Chest tube drainage is minimal and his chest tubes have been discontinued. I think that he is able to go to telemetry later this morning. Overall his progress is satisfactory. Exam (Progress Note) - Constitutional Vitals: Period Temp Pulse Resp BP Sys/Taylor Pulse Ox Last 24 Hr 97.7 F-98.6 F 68-86 7-16 91-128/42-62 93-100 Result/EKG - Labs CBC & BMP: 02/27/17 04:20 02/27/17 04:20 Labs: Laboratory Results - last 24 hr 02/25/17 02/25/17 02/26/17 16:24 16:24 08:50 WBC RBC Hgb Hct MCV MCH MCHC RDW Plt Count MPV Neut % (Auto) Lymph % (Auto) [place] % (Auto) Eos % (Auto) Baso % (Auto) Neut # (Auto) Lymph # (Auto) [place] # (Auto) Eos # (Auto) Baso # (Auto) Total Counted Immature Gran % Nucleated RBC % Immature Gran # Segmented Neutrophils Band Neutrophils Lymphocytes Myelocytes Nucleated RBCs # Platelet Estimate INR PT Patient/Control Mix Circ Anticoag PTT Patient Temperature 35 ABG pH ABG pH at Pt Temp 7.431 ABG pCO2 ABG pCO2 at Pt Temp 37.1 ABG pO2 ABG pO2 at Pt Temp 37.0 ABG HCO3 ABG Total CO2 ABG O2 Saturation ABG Base Excess ABG Sodium 131 L VBG pH 7.402 VBG pCO2 40.8 L VBG pO2 42.6 H VBG HCO3 24.7 VBG Total CO2 23.5 VBG O2 Saturation 78.4 VBG Base Excess 0.6 Hemoglobin 9.1 L D Hematocrit 28.3 L Potassium 3.6 Glucose 244 H Ionized Calcium FiO2 80.00 Sodium Chloride Carbon Dioxide Anion Gap BUN Creatinine GFR Calculation BUN/Creatinine Ratio POC Glucose Calculated Osmolality Calcium Venous Ioniz Calcium 0.99 L Magnesium Total Bilirubin 1.10 H Direct Bilirubin AST ALT Alkaline Phosphatase Total Creatine Kinase CK-MB (CK-2) CK and CKMB Interp Troponin I Total Protein Albumin Globulin Albumin/Globulin Ratio Blood Type O POSITIVE Antibody Screen Negative Crossmatch See Detail 02/26/17 02/26/17 02/26/17 09:30 10:10 10:10 WBC RBC Hgb Hct MCV MCH MCHC RDW Plt Count 84 L D MPV Neut % (Auto) Lymph % (Auto) [place] % (Auto) Eos % (Auto) Baso % (Auto) Neut # (Auto) Lymph # (Auto) [place] # (Auto) Eos # (Auto) Baso # (Auto) Total Counted Immature Gran % Nucleated RBC % Immature Gran # Segmented Neutrophils Band Neutrophils Lymphocytes Myelocytes Nucleated RBCs # Platelet Estimate INR PT Patient/Control Mix Circ Anticoag PTT Patient Temperature 37 37 ABG pH 7.421 ABG pH at Pt Temp 7.408 7.421 ABG pCO2 37.3 ABG pCO2 at Pt Temp 40.4 37.3 ABG pO2 140.0 H ABG pO2 at Pt Temp 38.7 140.0 ABG HCO3 24.5 ABG Total CO2 21.3 L ABG O2 Saturation 99.3 ABG Base Excess 0.1 ABG Sodium 132 L 136 VBG pH 7.408 VBG pCO2 40.4 L VBG pO2 38.7 VBG HCO3 24.7 VBG Total CO2 23.2 VBG O2 Saturation 73.3 VBG Base Excess 0.8 Hemoglobin 10.2 L 12.3 L D Hematocrit 31.6 L 37.8 L Potassium 5.1 3.9 Glucose 232 H 194 H Ionized Calcium 1.34 FiO2 80.00 Sodium Chloride Carbon Dioxide Anion Gap BUN Creatinine GFR Calculation BUN/Creatinine Ratio POC Glucose Calculated Osmolality Calcium Venous Ioniz Calcium 1.04 L Magnesium Total Bilirubin Direct Bilirubin AST ALT Alkaline Phosphatase Total Creatine Kinase CK-MB (CK-2) CK and CKMB Interp Troponin I Total Protein Albumin Globulin Albumin/Globulin Ratio Blood Type Antibody Screen Crossmatch 02/26/17 02/26/17 02/26/17 11:12 11:12 11:15 WBC 6.0 RBC 3.84 Hgb 13.1 L Hct 36.1 L MCV 94.0 MCH 34 MCHC 36.3 H RDW 11.6 Plt Count 136 D MPV 11.0 Neut % (Auto) 80.9 H Lymph % (Auto) 10.9 L [place] % (Auto) 7.0 Eos % (Auto) 0.3 Baso % (Auto) 0.2 Neut # (Auto) 4.9 Lymph # (Auto) 0.7 L [place] # (Auto) 0.4 Eos # (Auto) 0.0 Baso # (Auto) 0.0 Total Counted Immature Gran % 0.7 Nucleated RBC % 0.0 Immature Gran # 0.04 Segmented Neutrophils Band Neutrophils Lymphocytes Myelocytes Nucleated RBCs # 0.00 Platelet Estimate INR 1.3 PT Patient/Control Mix 13.6 Circ Anticoag PTT 27.9 Patient Temperature ABG pH ABG pH at Pt Temp ABG pCO2 ABG pCO2 at Pt Temp ABG pO2 ABG pO2 at Pt Temp ABG HCO3 ABG Total CO2 ABG O2 Saturation ABG Base Excess ABG Sodium VBG pH VBG pCO2 VBG pO2 VBG HCO3 VBG Total CO2 VBG O2 Saturation VBG Base Excess Hemoglobin Hematocrit Potassium Glucose Ionized Calcium FiO2 Sodium Chloride Carbon Dioxide Anion Gap BUN Creatinine GFR Calculation BUN/Creatinine Ratio POC Glucose Calculated Osmolality Calcium Venous Ioniz Calcium Magnesium 2.1 Total Bilirubin Direct Bilirubin AST ALT Alkaline Phosphatase Total Creatine Kinase CK-MB (CK-2) CK and CKMB Interp Troponin I Total Protein Albumin Globulin Albumin/Globulin Ratio Blood Type Antibody Screen Crossmatch 02/26/17 02/26/17 02/26/17 11:15 11:25 11:25 WBC RBC Hgb Hct MCV MCH MCHC RDW Plt Count MPV Neut % (Auto) Lymph % (Auto) [place] % (Auto) Eos % (Auto) Baso % (Auto) Neut # (Auto) Lymph # (Auto) [place] # (Auto) Eos # (Auto) Baso # (Auto) Total Counted Immature Gran % Nucleated RBC % Immature Gran # Segmented Neutrophils Band Neutrophils Lymphocytes Myelocytes Nucleated RBCs # Platelet Estimate INR PT Patient/Control Mix Circ Anticoag PTT Patient Temperature ABG pH 7.445 ABG pH at Pt Temp ABG pCO2 36.2 ABG pCO2 at Pt Temp ABG pO2 151.0 H ABG pO2 at Pt Temp ABG HCO3 25.5 ABG Total CO2 21.6 L ABG O2 Saturation 98.9 ABG Base Excess 1.2 ABG Sodium VBG pH VBG pCO2 VBG pO2 VBG HCO3 VBG Total CO2 VBG O2 Saturation VBG Base Excess Hemoglobin 12.9 L Hematocrit 39.8 L Potassium 3.5 3.6 Glucose 180 H 176 H Ionized Calcium FiO2 Sodium 143 Chloride 107 Carbon Dioxide 24 Anion Gap 15.6 H BUN 11 Creatinine 0.90 GFR Calculation 110 BUN/Creatinine Ratio 12.00 POC Glucose Calculated Osmolality 287.0 Calcium 8.8 Venous Ioniz Calcium Magnesium Total Bilirubin 2.40 H Direct Bilirubin AST 35 ALT 20 Alkaline Phosphatase 48 Total Creatine Kinase 142 CK-MB (CK-2) 11.4 H CK and CKMB Interp 8.0 Troponin I 1.760 H Total Protein 5.6 L Albumin 3.3 L Globulin 2.3 Albumin/Globulin Ratio 1.4 Blood Type Antibody Screen Crossmatch 02/26/17 02/26/17 02/26/17 12:59 14:05 14:54 WBC RBC Hgb Hct MCV MCH MCHC RDW Plt Count MPV Neut % (Auto) Lymph % (Auto) [place] % (Auto) Eos % (Auto) Baso % (Auto) Neut # (Auto) Lymph # (Auto) [place] # (Auto) Eos # (Auto) Baso # (Auto) Total Counted Immature Gran % Nucleated RBC % Immature Gran # Segmented Neutrophils Band Neutrophils Lymphocytes Myelocytes Nucleated RBCs # Platelet Estimate INR PT Patient/Control Mix Circ Anticoag PTT Patient Temperature ABG pH 7.408 7.403 ABG pH at Pt Temp ABG pCO2 40.7 42.0 ABG pCO2 at Pt Temp ABG pO2 149.0 H 117.0 H ABG pO2 at Pt Temp ABG HCO3 25.3 25.6 ABG Total CO2 22.8 L 23.7 ABG O2 Saturation 99.2 99.0 ABG Base Excess 0.9 1.3 ABG Sodium VBG pH VBG pCO2 VBG pO2 VBG HCO3 VBG Total CO2 VBG O2 Saturation VBG Base Excess Hemoglobin 11.8 L 10.6 L Hematocrit 36.4 L 32.7 L Potassium 3.6 3.8 Glucose 141 H 103 Ionized Calcium FiO2 Sodium Chloride Carbon Dioxide Anion Gap BUN Creatinine GFR Calculation BUN/Creatinine Ratio POC Glucose 112 H Calculated Osmolality Calcium Venous Ioniz Calcium Magnesium Total Bilirubin Direct Bilirubin AST ALT Alkaline Phosphatase Total Creatine Kinase CK-MB (CK-2) CK and CKMB Interp Troponin I Total Protein Albumin Globulin Albumin/Globulin Ratio Blood Type Antibody Screen Crossmatch 02/26/17 02/26/17 02/26/17 16:15 17:28 18:15 WBC RBC Hgb Hct MCV MCH MCHC RDW Plt Count MPV Neut % (Auto) Lymph % (Auto) [place] % (Auto) Eos % (Auto) Baso % (Auto) Neut # (Auto) Lymph # (Auto) [place] # (Auto) Eos # (Auto) Baso # (Auto) Total Counted Immature Gran % Nucleated RBC % Immature Gran # Segmented Neutrophils Band Neutrophils Lymphocytes Myelocytes Nucleated RBCs # Platelet Estimate INR PT Patient/Control Mix Circ Anticoag PTT Patient Temperature ABG pH 7.344 L ABG pH at Pt Temp ABG pCO2 45.0 ABG pCO2 at Pt Temp ABG pO2 103.0 H ABG pO2 at Pt Temp ABG HCO3 23.3 ABG Total CO2 22.1 L ABG O2 Saturation 97.7 ABG Base Excess -1.4 ABG Sodium VBG pH VBG pCO2 VBG pO2 VBG HCO3 VBG Total CO2 VBG O2 Saturation VBG Base Excess Hemoglobin 11.3 L Hematocrit 34.8 L Potassium 4.3 Glucose 154 H Ionized Calcium FiO2 Sodium Chloride Carbon Dioxide Anion Gap BUN Creatinine GFR Calculation BUN/Creatinine Ratio POC Glucose 77 155 H Calculated Osmolality Calcium Venous Ioniz Calcium Magnesium Total Bilirubin Direct Bilirubin AST ALT Alkaline Phosphatase Total Creatine Kinase CK-MB (CK-2) CK and CKMB Interp Troponin I Total Protein Albumin Globulin Albumin/Globulin Ratio Blood Type Antibody Screen Crossmatch 02/26/17 02/26/17 02/26/17 19:15 20:28 21:00 WBC RBC Hgb Hct MCV MCH MCHC RDW Plt Count MPV Neut % (Auto) Lymph % (Auto) [place] % (Auto) Eos % (Auto) Baso % (Auto) Neut # (Auto) Lymph # (Auto) [place] # (Auto) Eos # (Auto) Baso # (Auto) Total Counted Immature Gran % Nucleated RBC % Immature Gran # Segmented Neutrophils Band Neutrophils Lymphocytes Myelocytes Nucleated RBCs # Platelet Estimate INR PT Patient/Control Mix Circ Anticoag PTT Patient Temperature ABG pH 7.381 ABG pH at Pt Temp ABG pCO2 40.7 ABG pCO2 at Pt Temp ABG pO2 113.0 H ABG pO2 at Pt Temp ABG HCO3 23.7 ABG Total CO2 21.7 L ABG O2 Saturation 98.3 ABG Base Excess -0.9 ABG Sodium VBG pH VBG pCO2 VBG pO2 VBG HCO3 VBG Total CO2 VBG O2 Saturation VBG Base Excess Hemoglobin 11.0 L Hematocrit 33.9 L Potassium 4.3 Glucose 155 H Ionized Calcium FiO2 Sodium Chloride Carbon Dioxide Anion Gap BUN Creatinine GFR Calculation BUN/Creatinine Ratio POC Glucose 166 H Calculated Osmolality Calcium Venous Ioniz Calcium Magnesium Total Bilirubin Direct Bilirubin AST ALT Alkaline Phosphatase Total Creatine Kinase 187 D CK-MB (CK-2) 17.7 H D CK and CKMB Interp 9.5 Troponin I 3.320 H D Total Protein Albumin Globulin Albumin/Globulin Ratio Blood Type Antibody Screen Crossmatch 02/26/17 02/26/17 02/26/17 21:00 21:45 22:35 WBC RBC Hgb Hct MCV MCH MCHC RDW Plt Count MPV Neut % (Auto) Lymph % (Auto) [place] % (Auto) Eos % (Auto) Baso % (Auto) Neut # (Auto) Lymph # (Auto) [place] # (Auto) Eos # (Auto) Baso # (Auto) Total Counted Immature Gran % Nucleated RBC % Immature Gran # Segmented Neutrophils Band Neutrophils Lymphocytes Myelocytes Nucleated RBCs # Platelet Estimate INR PT Patient/Control Mix Circ Anticoag PTT Patient Temperature ABG pH 7.377 7.389 7.415 ABG pH at Pt Temp ABG pCO2 41.5 40.2 37.5 ABG pCO2 at Pt Temp ABG pO2 115.0 H 107.0 H 118.0 H ABG pO2 at Pt Temp ABG HCO3 23.8 23.9 24.3 ABG Total CO2 21.8 L 21.8 L 21.6 L ABG O2 Saturation 98.5 98.2 98.8 ABG Base Excess -0.8 -0.6 -0.2 ABG Sodium VBG pH VBG pCO2 VBG pO2 VBG HCO3 VBG Total CO2 VBG O2 Saturation VBG Base Excess Hemoglobin 11.4 L 11.1 L 10.9 L Hematocrit 35.1 L 34.3 L 33.5 L Potassium 4.0 4.5 4.2 Glucose 155 H 155 H 146 H Ionized Calcium FiO2 Sodium Chloride Carbon Dioxide Anion Gap BUN Creatinine GFR Calculation BUN/Creatinine Ratio POC Glucose Calculated Osmolality Calcium Venous Ioniz Calcium Magnesium Total Bilirubin Direct Bilirubin AST ALT Alkaline Phosphatase Total Creatine Kinase CK-MB (CK-2) CK and CKMB Interp Troponin I Total Protein Albumin Globulin Albumin/Globulin Ratio Blood Type Antibody Screen Crossmatch 02/27/17 02/27/17 02/27/17 00:10 01:20 02:03 WBC RBC Hgb Hct MCV MCH MCHC RDW Plt Count MPV Neut % (Auto) Lymph % (Auto) [place] % (Auto) Eos % (Auto) Baso % (Auto) Neut # (Auto) Lymph # (Auto) [place] # (Auto) Eos # (Auto) Baso # (Auto) Total Counted Immature Gran % Nucleated RBC % Immature Gran # Segmented Neutrophils Band Neutrophils Lymphocytes Myelocytes Nucleated RBCs # Platelet Estimate INR PT Patient/Control Mix Circ Anticoag PTT Patient Temperature ABG pH 7.387 ABG pH at Pt Temp ABG pCO2 44.3 ABG pCO2 at Pt Temp ABG pO2 64.5 L ABG pO2 at Pt Temp ABG HCO3 26.0 ABG Total CO2 27.4 H ABG O2 Saturation 92.6 L ABG Base Excess 0.8 ABG Sodium VBG pH VBG pCO2 VBG pO2 VBG HCO3 VBG Total CO2 VBG O2 Saturation VBG Base Excess Hemoglobin 11.3 L Hematocrit 33.0 L Potassium 4.4 Glucose 114 H Ionized Calcium FiO2 Sodium Chloride Carbon Dioxide Anion Gap BUN Creatinine GFR Calculation BUN/Creatinine Ratio POC Glucose 110 H 122 H Calculated Osmolality Calcium Venous Ioniz Calcium Magnesium Total Bilirubin Direct Bilirubin AST ALT Alkaline Phosphatase Total Creatine Kinase CK-MB (CK-2) CK and CKMB Interp Troponin I Total Protein Albumin Globulin Albumin/Globulin Ratio Blood Type Antibody Screen Crossmatch 02/27/17 02/27/17 02/27/17 03:10 04:20 04:20 WBC 16.3 H D RBC 3.08 L Hgb 10.5 L D Hct 29.1 L MCV 94.5 MCH 34 MCHC 36.1 H RDW 11.7 Plt Count 143 MPV 10.9 Neut % (Auto) 85.0 H Lymph % (Auto) 4.7 L [place] % (Auto) 9.6 Eos % (Auto) 0.0 Baso % (Auto) 0.1 Neut # (Auto) 13.9 H Lymph # (Auto) 0.8 L [place] # (Auto) 1.6 H Eos # (Auto) 0.0 Baso # (Auto) 0.0 Total Counted 100 Immature Gran % 0.6 Nucleated RBC % 0.0 Immature Gran # 0.09 Segmented Neutrophils 88 H Band Neutrophils 1 Lymphocytes 7 L Myelocytes 4 Nucleated RBCs # 0.00 Platelet Estimate Adequate INR PT Patient/Control Mix Circ Anticoag PTT Patient Temperature ABG pH ABG pH at Pt Temp ABG pCO2 ABG pCO2 at Pt Temp ABG pO2 ABG pO2 at Pt Temp ABG HCO3 ABG Total CO2 ABG O2 Saturation ABG Base Excess ABG Sodium VBG pH VBG pCO2 VBG pO2 VBG HCO3 VBG Total CO2 VBG O2 Saturation VBG Base Excess Hemoglobin Hematocrit Potassium 4.5 Glucose 90 Ionized Calcium FiO2 Sodium 141 Chloride 107 Carbon Dioxide 27 Anion Gap 11.5 BUN 16 Creatinine 1.10 GFR Calculation 86 BUN/Creatinine Ratio 14.00 POC Glucose 103 Calculated Osmolality 281.3 Calcium 8.1 L Venous Ioniz Calcium Magnesium 1.9 Total Bilirubin 1.00 Direct Bilirubin 0.30 H AST 37 ALT 20 Alkaline Phosphatase 38 L Total Creatine Kinase 225 D CK-MB (CK-2) 16.0 H CK and CKMB Interp 7.1 Troponin I 2.930 H Total Protein 5.3 L Albumin 3.3 L Globulin 2.0 L Albumin/Globulin Ratio 1.6 Blood Type Antibody Screen Crossmatch 02/27/17 02/27/17 02/27/17 04:20 05:10 06:21 WBC RBC Hgb Hct MCV MCH MCHC RDW Plt Count MPV Neut % (Auto) Lymph % (Auto) [place] % (Auto) Eos % (Auto) Baso % (Auto) Neut # (Auto) Lymph # (Auto) [place] # (Auto) Eos # (Auto) Baso # (Auto) Total Counted Immature Gran % Nucleated RBC % Immature Gran # Segmented Neutrophils Band Neutrophils Lymphocytes Myelocytes Nucleated RBCs # Platelet Estimate INR PT Patient/Control Mix Circ Anticoag PTT Patient Temperature ABG pH 7.387 ABG pH at Pt Temp ABG pCO2 42.7 ABG pCO2 at Pt Temp ABG pO2 85.2 ABG pO2 at Pt Temp ABG HCO3 24.9 ABG Total CO2 23.2 ABG O2 Saturation 96.8 ABG Base Excess 0.5 ABG Sodium VBG pH VBG pCO2 VBG pO2 VBG HCO3 VBG Total CO2 VBG O2 Saturation VBG Base Excess Hemoglobin 10.4 L Hematocrit 32.3 L Potassium 4.5 Glucose 97 Ionized Calcium FiO2 Sodium Chloride Carbon Dioxide Anion Gap BUN Creatinine GFR Calculation BUN/Creatinine Ratio POC Glucose 103 72 L Calculated Osmolality Calcium Venous Ioniz Calcium Magnesium Total Bilirubin Direct Bilirubin AST ALT Alkaline Phosphatase Total Creatine Kinase CK-MB (CK-2) CK and CKMB Interp Troponin I Total Protein Albumin Globulin Albumin/Globulin Ratio Blood Type Antibody Screen Crossmatch 02/27/17 07:07 WBC RBC Hgb Hct MCV MCH MCHC RDW Plt Count MPV Neut % (Auto) Lymph % (Auto) [place] % (Auto) Eos % (Auto) Baso % (Auto) Neut # (Auto) Lymph # (Auto) [place] # (Auto) Eos # (Auto) Baso # (Auto) Total Counted Immature Gran % Nucleated RBC % Immature Gran # Segmented Neutrophils Band Neutrophils Lymphocytes Myelocytes Nucleated RBCs # Platelet Estimate INR PT Patient/Control Mix Circ Anticoag PTT Patient Temperature ABG pH ABG pH at Pt Temp ABG pCO2 ABG pCO2 at Pt Temp ABG pO2 ABG pO2 at Pt Temp ABG HCO3 ABG Total CO2 ABG O2 Saturation ABG Base Excess ABG Sodium VBG pH VBG pCO2 VBG pO2 VBG HCO3 VBG Total CO2 VBG O2 Saturation VBG Base Excess Hemoglobin Hematocrit Potassium Glucose Ionized Calcium FiO2 Sodium Chloride Carbon Dioxide Anion Gap BUN Creatinine GFR Calculation BUN/Creatinine Ratio POC Glucose 115 H Calculated Osmolality Calcium Venous Ioniz Calcium Magnesium Total Bilirubin Direct Bilirubin AST ALT Alkaline Phosphatase Total Creatine Kinase CK-MB (CK-2) CK and CKMB Interp Troponin I Total Protein Albumin Globulin Albumin/Globulin Ratio Blood Type Antibody Screen Crossmatch Quality Measures - VTE Contraindication to Pharmacological VTE Prophylaxis: High Risk of Bleeding Specialty Discharge - Follow Up or Referrals Follow up with: Meng Desai MD [Physician] -
[2017-02-27] MEDS ORDERED: MAGNESIUM SULF RIDER 4 GM in PREMIX 1 EACH IV PRN (08:45)
[2017-02-27] MEDS ORDERED: MAGNESIUM SULF RIDER 2 GM in PREMIX 1 EACH IV PRN (08:45)
[2017-02-27] MEDS ORDERED: ACETAMINOPHEN 325 MG TABLET PO PRN (08:45)
[2017-02-27] MEDS ORDERED: MORPHINE 2 MG/1 ML SYRINGE IV PRN (08:45)
[2017-02-27] MEDS ORDERED: POTASSIUM CHLORIDE 20 MEQ TABLET PO PRN (08:45)
[2017-02-27] MEDS ORDERED: ONDANSETRON 4 MG/2 ML VIAL IV PRN (08:45)
[2017-02-27] MEDS ORDERED: ALUMINUM/MAGNES/SIMETH MAX STR 30 ML UDCUP PO PRN (08:45)
[2017-02-27] MEDS ORDERED: MAGNESIUM HYDROXIDE SUSP 30 ML UDCUP PO PRN (08:45)
[2017-02-27] MEDS ORDERED: PANTOPRAZOLE 40 MG TABLET PO SCH (09:00)
[2017-02-27] MEDS ORDERED: chlordiazePOXIDE 25 MG CAPSULE PO PRN (09:04)
[2017-02-27] MEDS: DOCUSATE SODIUM 100 MG CAPSULE PO SCH (09:48)
[2017-02-27] MEDS: FERROUS SULFATE 325 MG TABLET PO SCH (09:48)
[2017-02-27] MEDS: SODIUM CHLOR 0.45% KCL 20 MEQ 20 MEQ/1,000 ML BAG IV SCH (09:49)
[2017-02-27] MEDS: ASPIRIN EC 325 MG TABLET PO SCH (09:49)
[2017-02-27] MEDS: CHLORHEXIDINE 0.12% ORAL RINSE 60 ML BOTTLE SWISH/SPIT SCH ×3 (09:51→21:23)
[2017-02-27] MEDS ORDERED: INSULIN REGULAR 100 UNIT/ML SUBCUT SCH (12:00)
--- NOTE | 2017-02-27 14:08 | Hospitalist Progress Note ---
Hospitalist: Subjective Interval history: Pt seen this am in CVR. No fever. Pain controlled. Tolerating liquids. No nausea or vomiting. He was extubated overnight and has done well since. Off all drips. Exam - Constitutional Vitals: Period Temp Pulse Resp BP Sys/Taylor Pulse Ox Last 24 Hr 97.7 F-98.7 F 70-86 7-18 91-128/42-68 93-100 Exam: A and O x 3 RRR no M CTAB nonlabored Chest wall dressing in place Soft, NT, ND, hypoactive bowel sounds Warm no c/c/e RLE with bandage in place Results - Labs CBC & BMP: 02/27/17 04:20 02/27/17 04:20 - Impressions (1) Coronary artery disease s/p 2V CABG 02/26 Status: Acute Current Visit: Yes - mgt and post-op care per cardiology service and Dr. Sotelo (2) Expected acute blood loss anemia - transfuse as needed. Monitor H and H (3) Hypocalcemia - replaced. (4) Hyperglycemia- resolved/ possibly reactive Status: Acute - HgbA1c <6. I.S.S. (5) GERD Status: Acute Current Visit: Yes - PPI (6) Hypertension Status: Acute Current Visit: Yes - on home meds (7) Chronic alcohol use (history) - Watch for withdrawals. Librium as needed. On MVI, Folic acid, thiamine (8) Leukocytosis- ? reactive -No fever or acute signs of infection. F/U labs . Following along with you. Quality Measures - VTE Contraindication to Pharmacological VTE Prophylaxis: High Risk of Bleeding Specialty Discharge - Follow Up or Referrals Follow up with: Meng Desai MD [Physician] -
[2017-02-27] MEDS ORDERED: ZALEPLON 5 MG CAPSULE PO PRN (21:00)
[2017-02-27] MEDS: ROSUVASTATIN 20 MG TABLET PO SCH (21:17)
[2017-02-28 04:27] LABS: Eosinophils % 0.1 % (0.00-10.9); Hematocrit 23.8 VOL% (42.0-52.0); Hemoglobin 8.4 GM/DL (14.0-18.0); Immature Granulocytes % 0.5 %; Immature Granulocytes Absolute 0.04 #; Lymphocytes # 0.9 10*3/uL (1.4-4.0); Lymphocytes % 11.6 % (21.2-54.2); Mean Corpuscular HGB Conc 35.3 GM/DL (32-36); Mean Corpuscular Hemoglobin 34 PG (27-34); Mean Platelet Volume 11.8 FL (9.6-12.0); Monocytes # 0.7 10*3/uL (0.11-0.8); Monocytes % 9.6 % (1.7-12.7); Neutrophils # 5.9 10*3/uL (1.4-7.4); Neutrophils % 78.2 % (38.7-73.9); Platelet Count 114 T/CUMM (130-400); Red Blood Count 2.48 MC/CUMM (3.8-5.5); Red Cell Distribution Width 11.7 % (9.3-17.3); White Blood Count 7.6 T/CUMM (4-12)
[2017-02-28 05:00] LABS: Albumin 2.8 G/DL (3.4-5.0); Bilirubin,Direct 0.3 MG/DL (0.0-0.20); Bilirubin,Indirect 0.9 MG/DL (0.0-1.0); Bilirubin,Total 1.2 MG/DL (0.2-1.0); CKMB % 4.3 %; Calcium 7.9 MG/DL (8.5-10.1); Magnesium 1.7 MG/DL (1.8-2.4); Osmolality,Calculated 283.3 MOS/KG (273-304); Potassium 3.9 MMOL/L (3.5-5.1); Total Protein 4.6 G/DL (6.4-8.3)
[2017-02-28] MEDS: KETOROLAC 30 MG/1 ML VIAL IV SCH ×4 (05:21→23:43)
[2017-02-28 05:35] LABS: Troponin I Only 1.76 NG/ML (0.00-0.045)
[2017-02-28] MEDS ORDERED: FUROSEMIDE 40 MG/4 ML VIAL IV ONE ×2 (06:00→08:04)
[2017-02-28 06:19] LABS: Band Neutrophils 2 % (0-10); Eosinophils 1 % (0-10); Lymphocytes 8 % (20-55); Metamyelocytes 2 %; Myelocytes 1 %; Platelet Estimate Adequate; Segmented Neutrophils 75 % (50-85); Total Cells Counted 100
[2017-02-28] MEDS ORDERED: chlordiazePOXIDE 25 MG CAPSULE PO PRN (08:04)
--- NOTE | 2017-02-28 08:04 | Cardiothoracic Progress Note ---
Cardiothoracic Subjective Interval history: Patient looks and feels okay. Vital signs are stable and is breathing comfortably. We will gradually try to increase his activity today according to routine postoperative protocol. His chest x-ray does look okay but his hematocrit is only 23%. I think we will try and diurese him today and repeat his hematocrit in the morning. Overall his progress appears satisfactory. Exam (Progress Note) - Constitutional Vitals: Period Temp Pulse Resp BP Sys/Taylor Pulse Ox Last 24 Hr 97.5 F-98.7 F 73-93 12-20 91-128/46-68 95-99 Result/EKG - Labs CBC & BMP: 02/28/17 03:31 02/28/17 03:31 Labs: Laboratory Results - last 24 hr 02/27/17 02/27/17 02/27/17 16:04 19:41 23:24 WBC RBC Hgb Hct MCV MCH MCHC RDW Plt Count MPV Neut % (Auto) Lymph % (Auto) [place] % (Auto) Eos % (Auto) Baso % (Auto) Neut # (Auto) Lymph # (Auto) [place] # (Auto) Eos # (Auto) Baso # (Auto) Total Counted Immature Gran % Nucleated RBC % Immature Gran # Segmented Neutrophils Band Neutrophils Lymphocytes Monocytes Eosinophils Metamyelocytes Myelocytes Nucleated RBCs # Platelet Estimate Pappenheimer Bodies Sodium Potassium Chloride Carbon Dioxide Anion Gap BUN Creatinine GFR Calculation BUN/Creatinine Ratio Glucose POC Glucose 131 H 192 H 141 H Calculated Osmolality Calcium Magnesium Total Bilirubin Direct Bilirubin Indirect Bilirubin AST ALT Alkaline Phosphatase Total Creatine Kinase CK-MB (CK-2) CK and CKMB Interp Troponin I Total Protein Albumin Globulin Albumin/Globulin Ratio 02/28/17 02/28/17 02/28/17 03:31 03:31 03:51 WBC 7.6 D RBC 2.48 L Hgb 8.4 L D Hct 23.8 L MCV 96.0 MCH 34 MCHC 35.3 RDW 11.7 Plt Count 114 L D MPV 11.8 Neut % (Auto) 78.2 H Lymph % (Auto) 11.6 L [place] % (Auto) 9.6 Eos % (Auto) 0.1 Baso % (Auto) 0.0 Neut # (Auto) 5.9 Lymph # (Auto) 0.9 L [place] # (Auto) 0.7 Eos # (Auto) 0.0 Baso # (Auto) 0.0 Total Counted 100 Immature Gran % 0.5 Nucleated RBC % 0.0 Immature Gran # 0.04 Segmented Neutrophils 75 Band Neutrophils 2 Lymphocytes 8 L Monocytes 11 Eosinophils 1 Metamyelocytes 2 Myelocytes 1 Nucleated RBCs # 0.00 Platelet Estimate Adequate Pappenheimer Bodies Event Operations Manager Sodium 141 Potassium 3.9 Chloride 104 Carbon Dioxide 28 Anion Gap 12.9 BUN 18 Creatinine 1.00 GFR Calculation 97 BUN/Creatinine Ratio 18.00 Glucose 119 H POC Glucose 139 H Calculated Osmolality 283.3 Calcium 7.9 L Magnesium 1.7 L Total Bilirubin 1.20 H Direct Bilirubin 0.30 H Indirect Bilirubin 0.9 AST 24 ALT 16 Alkaline Phosphatase 35 L Total Creatine Kinase 145 D CK-MB (CK-2) 6.2 H D CK and CKMB Interp 4.3 Troponin I 1.760 H D Total Protein 4.6 L Albumin 2.8 L Globulin 1.8 L Albumin/Globulin Ratio 1.5 17 07:02 WBC RBC Hgb Hct MCV MCH MCHC RDW Plt Count MPV Neut % (Auto) Lymph % (Auto) [place] % (Auto) Eos % (Auto) Baso % (Auto) Neut # (Auto) Lymph # (Auto) [place] # (Auto) Eos # (Auto) Baso # (Auto) Total Counted Immature Gran % Nucleated RBC % Immature Gran # Segmented Neutrophils Band Neutrophils Lymphocytes Monocytes Eosinophils Metamyelocytes Myelocytes Nucleated RBCs # Platelet Estimate Pappenheimer Bodies Sodium Potassium Chloride Carbon Dioxide Anion Gap BUN Creatinine GFR Calculation BUN/Creatinine Ratio Glucose POC Glucose 136 H Calculated Osmolality Calcium Magnesium Total Bilirubin Direct Bilirubin Indirect Bilirubin AST ALT Alkaline Phosphatase Total Creatine Kinase CK-MB (CK-2) CK and CKMB Interp Troponin I Total Protein Albumin Globulin Albumin/Globulin Ratio Quality Measures - VTE Contraindication to Pharmacological VTE Prophylaxis: High Risk of Bleeding Specialty Discharge - Follow Up or Referrals Follow up with: Meng eDsai MD [Physician] -
[2017-02-28] MEDS ORDERED: THIAMINE 100 MG TABLET PO SCH (09:00)
[2017-02-28] MEDS ORDERED: FOLIC ACID 1 MG TABLET PO SCH (09:00)
[2017-02-28] MEDS ORDERED: METOPROLOL TARTRATE 50 MG TABLET PO SCH (09:00)
[2017-02-28] MEDS ORDERED: MULTIVITAMIN (CENTRUM) TABLET PO SCH (09:00)
[2017-02-28] MEDS ORDERED: LOSARTAN/HCTZ 50-12.5 MG TABLET PO SCH ×2 (09:00)
[2017-02-28] MEDS: ASPIRIN EC 325 MG TABLET PO SCH (09:18)
[2017-02-28] MEDS: DOCUSATE SODIUM 100 MG CAPSULE PO SCH (09:18)
[2017-02-28] MEDS: MULTIVITAMIN (CENTRUM) TABLET PO SCH (09:18)
--- NOTE | 2017-02-28 09:18 | XRay Report ---
History short of breath Comparison 02/27/2017 The heart is enlarged. Right central line tip remains over the right atrium There is slight improvement of prior discoid atelectasis in the right lung base. No new areas of consolidation seen Impression: Slight improvement of right basilar atelectasis. Minimal patchy infiltrate/atelectasis remains PROCEDURE INTERPRETED AT [facility] DEPARTMENT OF RADIOLOGY Final Report Signed by: Dr. Denise Robles
[2017-02-28] MEDS: FOLIC ACID 1 MG TABLET PO SCH (09:19)
[2017-02-28] MEDS: THIAMINE 100 MG TABLET PO SCH (09:19)
[2017-02-28] MEDS: METOPROLOL TARTRATE 50 MG TABLET PO SCH (09:19)
[2017-02-28] MEDS: CHLORHEXIDINE 0.12% ORAL RINSE 60 ML BOTTLE SWISH/SPIT SCH ×2 (09:20→20:59)
[2017-02-28] MEDS: LOSARTAN/HCTZ 50-12.5 MG TABLET PO SCH (09:20)
[2017-02-28] MEDS: FERROUS SULFATE 325 MG TABLET PO SCH (09:28)
[2017-02-28] MEDS: oxyCODONE/ACETAMINOPHEN 5-325 MG TABLET PO PRN ×2 (09:28→15:47)
[2017-02-28] MEDS: SODIUM CHLOR 0.45% KCL 20 MEQ 20 MEQ/1,000 ML BAG IV SCH (10:05)
--- NOTE | 2017-02-28 11:37 | Hospitalist Progress Note ---
Hospitalist: Subjective Interval history: Pt denies any pain. He is sitting chewing tobacco in the bed this am. When asked would he like a nicotine patch, he declines. No fever. No SOB. Tolerating po. Exam - Constitutional Vitals: Period Temp Pulse Resp BP Sys/Taylor Pulse Ox Last 24 Hr 97.5 F-98.3 F 73-93 18-20 91-113/49-59 95-99 Exam: A and O x 3 RRR no M CTAB nonlabored Chest wall dressing in place Soft, NT, ND, hypoactive bowel sounds Warm no c/c/e RLE with bandage in place Results - Labs CBC & BMP: 02/28/17 03:31 02/28/17 03:31 Labs: (1) Coronary artery disease s/p 2V CABG 02/26 Status: Acute Current Visit: Yes - mgt and post-op care per cardiology service and Dr. Sotelo (2) Expected acute blood loss anemia with thrombocytopenia - transfuse as needed. Monitor H and H (3) Hypocalcemia - replaced. (4) Hyperglycemia- resolved/ possibly reactive Status: Acute - HgbA1c <6. I.S.S. (5) GERD Status: Acute Current Visit: Yes - PPI (6) Hypertension Status: Acute Current Visit: Yes - on home meds. BP low so will decrease Hyzaar to 25/6.25mg daily. (7) Chronic alcohol use (history) - Watch for withdrawals. Librium as needed. On MVI, Folic acid, thiamine (8) Leukocytosis- possibly reactive- resolved -No fever or acute signs of infection. F/U labs . (9) Ongoing tobacco use - recommend cessation I will be away several days. One of my associates will follow in my absence. Quality Measures - VTE Contraindication to Pharmacological VTE Prophylaxis: High Risk of Bleeding Specialty Discharge - Follow Up or Referrals Follow up with: Meng Desai MD [Physician] -
--- NOTE | 2017-02-28 17:10 | Cardiology Progress Note ---
Assessment and Plan (1) Status post coronary artery bypass graft Status: Chronic Assessment and plan: Minimal chest tube bleeding Good urine output Good blood pressure post events Watch for any signs or symptoms of ischemia or complications 02/28/17: No arrhythmia Hematocrit is low. Will diuresis. Maybe it is dilutional We will start on some iron sulfate Replete magnesium if not done so far Continue postoperative care Ambulate Close observation. Current Visit: Yes (2) Acid reflux Status: Acute Current Visit: Yes (3) Coronary artery disease Status: Chronic Current Visit: Yes (4) Hypertension Status: Chronic Current Visit: Yes (5) Mild bump in glucose at clinic Status: Acute Current Visit: Yes Cardiology - PN: Subj Interval history: No angina or shortness of breath. Some chest wall soreness postop. Exam (Progress Note) - Constitutional Vitals: Period Temp Pulse Resp BP Sys/Taylor Pulse Ox Last 24 Hr 97.5 F-100.1 F 73-90 16-20 91-132/49-71 94-99 Exam: HEENT: Pupils equal, reactive to light and accommodation Neck: NoJVD or bruit Lungs clear to auscultation Heart: Regular rhythm rate with normal S1 and S2. Apical S4 Abdomen: No hepatosplenomegaly Spine/extremities: No clubbing, cyanosis, or edema Neuro: Nonfocal Psych: No depression or anxiety Normal sinus rhythm Result/EKG - Labs CBC & BMP: 02/28/17 03:31 02/28/17 03:31 Lab Results: I have reviewed the past 24 hour labs Labs: Laboratory Results - last 24 hr 02/25/17 02/27/17 02/27/17 16:24 19:41 23:24 WBC RBC Hgb Hct MCV MCH MCHC RDW Plt Count MPV Neut % (Auto) Lymph % (Auto) [place] % (Auto) Eos % (Auto) Baso % (Auto) Neut # (Auto) Lymph # (Auto) [place] # (Auto) Eos # (Auto) Baso # (Auto) Total Counted Immature Gran % Nucleated RBC % Immature Gran # Segmented Neutrophils Band Neutrophils Lymphocytes Monocytes Eosinophils Metamyelocytes Myelocytes Nucleated RBCs # Platelet Estimate Pappenheimer Bodies Sodium Potassium Chloride Carbon Dioxide Anion Gap BUN Creatinine GFR Calculation BUN/Creatinine Ratio Glucose POC Glucose 192 H 141 H Calculated Osmolality Calcium Magnesium Total Bilirubin Direct Bilirubin Indirect Bilirubin AST ALT Alkaline Phosphatase Total Creatine Kinase CK-MB (CK-2) CK and CKMB Interp Troponin I Total Protein Albumin Globulin Albumin/Globulin Ratio Crossmatch See Detail 02/28/17 02/28/17 02/28/17 03:31 03:31 03:51 WBC 7.6 D RBC 2.48 L Hgb 8.4 L D Hct 23.8 L MCV 96.0 MCH 34 MCHC 35.3 RDW 11.7 Plt Count 114 L D MPV 11.8 Neut % (Auto) 78.2 H Lymph % (Auto) 11.6 L [place] % (Auto) 9.6 Eos % (Auto) 0.1 Baso % (Auto) 0.0 Neut # (Auto) 5.9 Lymph # (Auto) 0.9 L [place] # (Auto) 0.7 Eos # (Auto) 0.0 Baso # (Auto) 0.0 Total Counted 100 Immature Gran % 0.5 Nucleated RBC % 0.0 Immature Gran # 0.04 Segmented Neutrophils 75 Band Neutrophils 2 Lymphocytes 8 L Monocytes 11 Eosinophils 1 Metamyelocytes 2 Myelocytes 1 Nucleated RBCs # 0.00 Platelet Estimate Adequate Pappenheimer Bodies Sugarcane Planter Sodium 141 Potassium 3.9 Chloride 104 Carbon Dioxide 28 Anion Gap 12.9 BUN 18 Creatinine 1.00 GFR Calculation 97 BUN/Creatinine Ratio 18.00 Glucose 119 H POC Glucose 139 H Calculated Osmolality 283.3 Calcium 7.9 L Magnesium 1.7 L Total Bilirubin 1.20 H Direct Bilirubin 0.30 H Indirect Bilirubin 0.9 AST 24 ALT 16 Alkaline Phosphatase 35 L Total Creatine Kinase 145 D CK-MB (CK-2) 6.2 H D CK and CKMB Interp 4.3 Troponin I 1.760 H D Total Protein 4.6 L Albumin 2.8 L Globulin 1.8 L Albumin/Globulin Ratio 1.5 Crossmatch 02/28/17 02/28/17 02/28/17 07:02 11:29 16:26 WBC RBC Hgb Hct MCV MCH MCHC RDW Plt Count MPV Neut % (Auto) Lymph % (Auto) [place] % (Auto) Eos % (Auto) Baso % (Auto) Neut # (Auto) Lymph # (Auto) [place] # (Auto) Eos # (Auto) Baso # (Auto) Total Counted Immature Gran % Nucleated RBC % Immature Gran # Segmented Neutrophils Band Neutrophils Lymphocytes Monocytes Eosinophils Metamyelocytes Myelocytes Nucleated RBCs # Platelet Estimate Pappenheimer Bodies Sodium Potassium Chloride Carbon Dioxide Anion Gap BUN Creatinine GFR Calculation BUN/Creatinine Ratio Glucose POC Glucose 136 H 132 H 113 H Calculated Osmolality Calcium Magnesium Total Bilirubin Direct Bilirubin Indirect Bilirubin AST ALT Alkaline Phosphatase Total Creatine Kinase CK-MB (CK-2) CK and CKMB Interp Troponin I Total Protein Albumin Globulin Albumin/Globulin Ratio Crossmatch - Diagnostic Findings Procedure: Chest x-ray: report reviewed by me Quality Measures - VTE Contraindication to Pharmacological VTE Prophylaxis: High Risk of Bleeding Specialty Discharge - Follow Up or Referrals Follow up with: Meng Desai MD [Physician] -
[2017-02-28] MEDS: MAGNESIUM CHLORIDE 64 MG TABLET PO SCH ×2 (18:16→20:59)
[2017-02-28] MEDS: ROSUVASTATIN 20 MG TABLET PO SCH (20:59)
[2017-02-28] MEDS ORDERED: ROSUVASTATIN 20 MG TABLET PO SCH (21:00)
[2017-03-01] MEDS: KETOROLAC 30 MG/1 ML VIAL IV SCH ×4 (03:59→23:40)
[2017-03-01 05:00] LABS: Eosinophils % 0.4 % (0.00-10.9); Hematocrit 25.9 VOL% (42.0-52.0); Hemoglobin 9.3 GM/DL (14.0-18.0); Immature Granulocytes Absolute 0.07 #; Lymphocytes # 1.3 10*3/uL (1.4-4.0); Lymphocytes % 18.3 % (21.2-54.2); Mean Corpuscular HGB Conc 35.9 GM/DL (32-36); Mean Corpuscular Hemoglobin 34 PG (27-34); Mean Corpuscular Volume 94.5 FL (87-102); Mean Platelet Volume 11.6 FL (9.6-12.0); Monocytes # 0.9 10*3/uL (0.11-0.8); Monocytes % 12.1 % (1.7-12.7); Neutrophils % 68.2 % (38.7-73.9); Platelet Count 135 T/CUMM (130-400); Red Blood Count 2.74 MC/CUMM (3.8-5.5); Red Cell Distribution Width 11.6 % (9.3-17.3); White Blood Count 7.3 T/CUMM (4-12)
[2017-03-01 05:36] LABS: Alanine Aminotransferase 15 U/L (16-61); Albumin 2.8 G/DL (3.4-5.0); Alkaline Phosphatase 41 U/L (45-117); Aspartate Amino Transferase 21 U/L (0-37); Bilirubin,Indirect 1.1 MG/DL (0.0-1.0); Blood Urea Nitrogen 22 MG/DL (7-18); Calcium 8.2 MG/DL (8.5-10.1); Glucose 101 MG/DL (74-106); Magnesium 1.9 MG/DL (1.8-2.4); Osmolality,Calculated 283.3 MOS/KG (273-304); Potassium 3.5 MMOL/L (3.5-5.1); Sodium 141 MMOL/L (136-145)
--- NOTE | 2017-03-01 06:19 | Cardiothoracic Progress Note ---
Cardiothoracic Subjective Interval history: Patient had a stable night. Vital signs are stable and he is breathing comfortably. Laboratory work is essentially okay this morning although his hematocrit is only 25%. This is up slightly from yesterday after diuresis. I think we will try and avoid transfusion because patient appears asymptomatic. We will gradually increase his activity and he may be ready for discharge soon. Chest x-ray looks clear. Exam (Progress Note) - Constitutional Vitals: Period Temp Pulse Resp BP Sys/Taylor Pulse Ox Last 24 Hr 98 F-100.1 F 73-91 16-20 94-132/56-74 92-96 Result/EKG - Labs CBC & BMP: 03/01/17 04:30 03/01/17 04:30 Labs: Laboratory Results - last 24 hr 02/25/17 02/28/17 02/28/17 16:24 03:31 03:51 WBC RBC Hgb Hct MCV MCH MCHC RDW Plt Count MPV Neut % (Auto) Lymph % (Auto) [place] % (Auto) Eos % (Auto) Baso % (Auto) Neut # (Auto) Lymph # (Auto) [place] # (Auto) Eos # (Auto) Baso # (Auto) Total Counted 100 Immature Gran % Nucleated RBC % Immature Gran # Segmented Neutrophils 75 Band Neutrophils 2 Lymphocytes 8 L Monocytes 11 Eosinophils 1 Metamyelocytes 2 Myelocytes 1 Nucleated RBCs # Platelet Estimate Adequate Pappenheimer Bodies Payroll Supervisor Sodium Potassium Chloride Carbon Dioxide Anion Gap BUN Creatinine GFR Calculation BUN/Creatinine Ratio Glucose POC Glucose 139 H Calculated Osmolality Calcium Magnesium Total Bilirubin Direct Bilirubin Indirect Bilirubin AST ALT Alkaline Phosphatase Total Creatine Kinase CK-MB (CK-2) Troponin I Total Protein Albumin Globulin Albumin/Globulin Ratio Crossmatch See Detail 02/28/17 02/28/17 02/28/17 07:02 11:29 16:26 WBC RBC Hgb Hct MCV MCH MCHC RDW Plt Count MPV Neut % (Auto) Lymph % (Auto) [place] % (Auto) Eos % (Auto) Baso % (Auto) Neut # (Auto) Lymph # (Auto) [place] # (Auto) Eos # (Auto) Baso # (Auto) Total Counted Immature Gran % Nucleated RBC % Immature Gran # Segmented Neutrophils Band Neutrophils Lymphocytes Monocytes Eosinophils Metamyelocytes Myelocytes Nucleated RBCs # Platelet Estimate Pappenheimer Bodies Sodium Potassium Chloride Carbon Dioxide Anion Gap BUN Creatinine GFR Calculation BUN/Creatinine Ratio Glucose POC Glucose 136 H 132 H 113 H Calculated Osmolality Calcium Magnesium Total Bilirubin Direct Bilirubin Indirect Bilirubin AST ALT Alkaline Phosphatase Total Creatine Kinase CK-MB (CK-2) Troponin I Total Protein Albumin Globulin Albumin/Globulin Ratio Crossmatch 03/01/17 03/01/17 04:30 04:30 WBC 7.3 RBC 2.74 L Hgb 9.3 L Hct 25.9 L MCV 94.5 MCH 34 MCHC 35.9 RDW 11.6 Plt Count 135 MPV 11.6 Neut % (Auto) 68.2 Lymph % (Auto) 18.3 L [place] % (Auto) 12.1 Eos % (Auto) 0.4 Baso % (Auto) 0.0 Neut # (Auto) 5.0 Lymph # (Auto) 1.3 L [place] # (Auto) 0.9 H Eos # (Auto) 0.0 Baso # (Auto) 0.0 Total Counted Immature Gran % 1.0 Nucleated RBC % 0.0 Immature Gran # 0.07 Segmented Neutrophils Band Neutrophils Lymphocytes Monocytes Eosinophils Metamyelocytes Myelocytes Nucleated RBCs # 0.00 Platelet Estimate Pappenheimer Bodies Sodium 141 Potassium 3.5 Chloride 102 Carbon Dioxide 29 Anion Gap 13.5 BUN 22 H Creatinine 1.00 GFR Calculation 97 BUN/Creatinine Ratio 22.00 H Glucose 101 POC Glucose Calculated Osmolality 283.3 Calcium 8.2 L Magnesium 1.9 Total Bilirubin 1.40 H Direct Bilirubin 0.30 H Indirect Bilirubin 1.1 H AST 21 ALT 15 L Alkaline Phosphatase 41 L Total Creatine Kinase 100 D CK-MB (CK-2) 1.5 Troponin I 1.670 H Total Protein 5.0 L Albumin 2.8 L Globulin 2.2 L Albumin/Globulin Ratio 1.2 Crossmatch Quality Measures - VTE Contraindication to Pharmacological VTE Prophylaxis: High Risk of Bleeding Specialty Discharge - Follow Up or Referrals Follow up with: Meng Desai MD [Physician] -
--- NOTE | 2017-03-01 08:55 | XRay Report ---
Referring Physician: Michele Sotelo Exam: XR chest 1V portable Date: March 01, 2017 at 5:57 AM Reason: Shortness of breath Comparison: Chest one view portable February 28, 2017 Findings: A right IJ catheter is again in place. The cardiac silhouette is again enlarged, and the patient is status post sternotomy. There are mild perihilar and bibasilar opacities. This likely represents atelectasis and possibly pulmonary edema. No pneumothorax is identified, but there is mild left pleural fluid and possible minimal right pleural fluid. The osseous structures appear stable. Impression: There has been no significant change. PROCEDURE INTERPRETED AT [facility] DEPARTMENT OF RADIOLOGY Final Report Signed by: Dr. Raegan Howard
[2017-03-01] MEDS: FERROUS SULFATE 325 MG TABLET PO SCH (09:20)
[2017-03-01] MEDS: LOSARTAN/HCTZ 50-12.5 MG TABLET PO SCH (09:20)
[2017-03-01] MEDS: FOLIC ACID 1 MG TABLET PO SCH (09:21)
[2017-03-01] MEDS: DOCUSATE SODIUM 100 MG CAPSULE PO SCH (09:21)
[2017-03-01] MEDS: MULTIVITAMIN (CENTRUM) TABLET PO SCH (09:21)
[2017-03-01] MEDS: MAGNESIUM CHLORIDE 64 MG TABLET PO SCH ×2 (09:21→21:37)
[2017-03-01] MEDS: THIAMINE 100 MG TABLET PO SCH (09:21)
[2017-03-01] MEDS: ASPIRIN EC 325 MG TABLET PO SCH (09:22)
[2017-03-01] MEDS: METOPROLOL TARTRATE 50 MG TABLET PO SCH (09:22)
[2017-03-01] MEDS: CHLORHEXIDINE 0.12% ORAL RINSE 60 ML BOTTLE SWISH/SPIT SCH ×2 (09:24→21:50)
--- NOTE | 2017-03-01 09:51 | Cardiology Progress Note ---
<Dominga Hutchison - Last Filed: 03/01/17 09:48> Assessment and Plan (1) Status post coronary artery bypass graft Status: Acute Assessment and plan: SEE PLAN OF CARE LISTED BELOW Current Visit: Yes (2) Coronary artery disease Status: Chronic Assessment and plan: SEE PLAN OF CARE LISTED BELOW Current Visit: Yes (3) Dyslipidemia Status: Chronic Assessment and plan: SEE PLAN OF CARE LISTED BELOW Current Visit: Yes (4) Hypertension Status: Chronic Assessment and plan: SEE PLAN OF CARE LISTED BELOW Current Visit: Yes (5) Tobacco abuse Status: Chronic Assessment and plan: SEE PLAN OF CARE LISTED BELOW Current Visit: Yes Cardiology - PN: Subj Interval history: SUPERVISOR OF RESEARCH: DR. 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 Identified was severe 3 vessel CAD. Patient underwent CABG (SVG to OM, SVG to RCA) February 26, 2017, performed by Dr. Sotelo. LVEF 55%. MARCH 01, 2017 UPDATE: POD 3 CABG x 2 (SVG to OM, SVG to RCA). Patient is doing well after transfer to telemetry floor. He is awake alert and oriented without any acute distress. Denies chest pain, heaviness or tightness. Labs are stable this morning. Troponin continues to trend down as expected. Vital signs are stable. Surgical incisions are healing well without signs of infection. Telemetry was reviewed, no overt arrhythmia or ectopy noted. We will continue to follow along. ASSESSMENT/PLAN: 1. CAD S/P CABG (SVG - OM, SVG - RCA) - POD 3. Continues to do well. Labs are stable. Encouraged ambulation and incentive spirometry. 2. HYPERTENSION - This is currently well controlled. Continue beta david and ARB. 3. DYSLIPIDEMIA - Continue lipid-lowering agent. 4. TOBACCOISM - Smoking cessation encouraged. Further plan and addendum to follow per Dr. Catalan. Exam (Progress Note) - Constitutional Vitals: Period Temp Pulse Resp BP Sys/Taylor Pulse Ox Last 24 Hr 98.0 F-100.1 F 72-91 16-20 94-132/56-74 92-99 Exam: General: Appears well with no apparent distress. Pleasant and cooperative. Appears comfortable. HEENT: PERRL, normocephalic, atraumatic. Mucous membranes moist. No jaundice noted. Conjunctiva moist and clear, sclerae anicteric Neck: No JVD/HJR, no thyromegaly or lymphadenopathy noted. No carotid bruit appreciated Cardiac: Regular rate and rhythm. No murmur rub or gallop. Chest wall: Midsternal chest incision healing well without dehiscence or drainage. Lungs: Clear to auscultation without accessory muscle use to assist the respiratory pattern. Requiring oxygen intermittently. Abdomen: Soft, bowel sounds normoactive. Nontender and nondistended. No abdominal bruit or thrill noted. No masses noted. Extremities: No clubbing, cyanosis noted. No edema noted. Upper extremity pulses 2+. Lower extremity pulses 2+. Capillary refill less than 3 seconds. Right lower extremity incision healing well without dehiscence or drainage. Neuro: Awake, alert and oriented 3. Moves all extremities well without hemiparesis or paralysis. No essential tremor is appreciated. Result/EKG - Labs CBC & BMP: 03/01/17 04:30 03/01/17 04:30 Lab Results: I have reviewed the past 24 hour labs Labs: Laboratory Results - last 24 hr 02/25/17 02/28/17 02/28/17 16:24 11:29 16:26 WBC RBC Hgb Hct MCV MCH MCHC RDW Plt Count MPV Neut % (Auto) Lymph % (Auto) [place] % (Auto) Eos % (Auto) Baso % (Auto) Neut # (Auto) Lymph # (Auto) [place] # (Auto) Eos # (Auto) Baso # (Auto) Immature Gran % Nucleated RBC % Immature Gran # Nucleated RBCs # Sodium Potassium Chloride Carbon Dioxide Anion Gap BUN Creatinine GFR Calculation BUN/Creatinine Ratio Glucose POC Glucose 132 H 113 H Calculated Osmolality Calcium Magnesium Total Bilirubin Direct Bilirubin Indirect Bilirubin AST ALT Alkaline Phosphatase Total Creatine Kinase CK-MB (CK-2) Troponin I Total Protein Albumin Globulin Albumin/Globulin Ratio Crossmatch See Detail 03/01/17 03/01/17 03/01/17 04:30 04:30 07:27 WBC 7.3 RBC 2.74 L Hgb 9.3 L Hct 25.9 L MCV 94.5 MCH 34 MCHC 35.9 RDW 11.6 Plt Count 135 MPV 11.6 Neut % (Auto) 68.2 Lymph % (Auto) 18.3 L [place] % (Auto) 12.1 Eos % (Auto) 0.4 Baso % (Auto) 0.0 Neut # (Auto) 5.0 Lymph # (Auto) 1.3 L [place] # (Auto) 0.9 H Eos # (Auto) 0.0 Baso # (Auto) 0.0 Immature Gran % 1.0 Nucleated RBC % 0.0 Immature Gran # 0.07 Nucleated RBCs # 0.00 Sodium 141 Potassium 3.5 Chloride 102 Carbon Dioxide 29 Anion Gap 13.5 BUN 22 H Creatinine 1.00 GFR Calculation 97 BUN/Creatinine Ratio 22.00 H Glucose 101 POC Glucose 111 H Calculated Osmolality 283.3 Calcium 8.2 L Magnesium 1.9 Total Bilirubin 1.40 H Direct Bilirubin 0.30 H Indirect Bilirubin 1.1 H AST 21 ALT 15 L Alkaline Phosphatase 41 L Total Creatine Kinase 100 D CK-MB (CK-2) 1.5 Troponin I 1.670 H Total Protein 5.0 L Albumin 2.8 L Globulin 2.2 L Albumin/Globulin Ratio 1.2 Crossmatch Quality Measures - VTE Contraindication to Pharmacological VTE Prophylaxis: High Risk of Bleeding Specialty Discharge - Follow Up or Referrals Follow up with: Meng Desai MD [Physician] - <Josué Catalan - Last Filed: 03/01/17 16:09> Exam (Progress Note) - Constitutional Vitals: Period Temp Pulse Resp BP Sys/Taylor Pulse Ox Last 24 Hr 97.5 F-100.1 F 68-91 16-20 94-132/58-74 92-99 Result/EKG - Labs CBC & BMP: 03/01/17 04:30 03/01/17 04:30 Labs: Laboratory Results - last 24 hr 02/28/17 03/01/17 03/01/17 16:26 04:30 04:30 WBC 7.3 RBC 2.74 L Hgb 9.3 L Hct 25.9 L MCV 94.5 MCH 34 MCHC 35.9 RDW 11.6 Plt Count 135 MPV 11.6 Neut % (Auto) 68.2 Lymph % (Auto) 18.3 L [place] % (Auto) 12.1 Eos % (Auto) 0.4 Baso % (Auto) 0.0 Neut # (Auto) 5.0 Lymph # (Auto) 1.3 L [place] # (Auto) 0.9 H Eos # (Auto) 0.0 Baso # (Auto) 0.0 Immature Gran % 1.0 Nucleated RBC % 0.0 Immature Gran # 0.07 Nucleated RBCs # 0.00 Sodium 141 Potassium 3.5 Chloride 102 Carbon Dioxide 29 Anion Gap 13.5 BUN 22 H Creatinine 1.00 GFR Calculation 97 BUN/Creatinine Ratio 22.00 H Glucose 101 POC Glucose 113 H Calculated Osmolality 283.3 Calcium 8.2 L Magnesium 1.9 Total Bilirubin 1.40 H Direct Bilirubin 0.30 H Indirect Bilirubin 1.1 H AST 21 ALT 15 L Alkaline Phosphatase 41 L Total Creatine Kinase 100 D CK-MB (CK-2) 1.5 Troponin I 1.670 H Total Protein 5.0 L Albumin 2.8 L Globulin 2.2 L Albumin/Globulin Ratio 1.2 03/01/17 03/01/17 07:27 11:29 WBC RBC Hgb Hct MCV MCH MCHC RDW Plt Count MPV Neut % (Auto) Lymph % (Auto) [place] % (Auto) Eos % (Auto) Baso % (Auto) Neut # (Auto) Lymph # (Auto) [place] # (Auto) Eos # (Auto) Baso # (Auto) Immature Gran % Nucleated RBC % Immature Gran # Nucleated RBCs # Sodium Potassium Chloride Carbon Dioxide Anion Gap BUN Creatinine GFR Calculation BUN/Creatinine Ratio Glucose POC Glucose 111 H 117 H Calculated Osmolality Calcium Magnesium Total Bilirubin Direct Bilirubin Indirect Bilirubin AST ALT Alkaline Phosphatase Total Creatine Kinase CK-MB (CK-2) Troponin I Total Protein Albumin Globulin Albumin/Globulin Ratio
--- NOTE | 2017-03-01 13:04 | Hospitalist Progress Note ---
<Taty Raoms - Last Filed: 03/01/17 13:02> Assessment and Plan (1) Coronary artery disease Status: Chronic Assessment and plan: Mr. Talbert is a 66-year-old male that is now postop day 3 coronary bypass grafting 2 with saphenous vein graft. Patient is doing very well postoperatively and should be going home soon. Hospital medicine has been following for medical management. He did have a bump in his blood sugars postoperatively but they have normalized at this time. His hemoglobin A1c is normal. He is afebrile, vital signs stable, labs all look good. Will continue to follow. Dr. Rivers to see and examined patient and further recommendations to follow. Current Visit: Yes (2) Acid reflux Status: Acute Current Visit: Yes (3) Hypertension Status: Chronic Current Visit: Yes (4) Status post coronary artery bypass graft Status: Acute Current Visit: Yes (5) Dyslipidemia Status: Chronic Current Visit: Yes (6) Tobacco abuse Status: Chronic Current Visit: Yes Hospitalist: Subjective Interval history: Mr. Hernandes is doing well today. He is sitting up in the chair without complaints. He is hoping to go home tomorrow. Exam - Constitutional Vitals: Period Temp Pulse Resp BP Sys/Taylor Pulse Ox Last 24 Hr 97.5 F-100.1 F 68- 16-20 94-132/58-74 92-99 Exam: 66-year-old male, no acute distress, alert and oriented Chest clear, well-healing midline incision, CV regular rate and rhythm Abdomen soft nontender Extremities no edema Results - Labs CBC & BMP: 03/01/17 04:30 03/01/17 04:30 Lab Results: I have reviewed the past 24 hour labs Quality Measures - VTE Contraindication to Pharmacological VTE Prophylaxis: High Risk of Bleeding Specialty Discharge - Follow Up or Referrals Follow up with: Meng Desai MD [Physician] - <Lokesh Rivers - Last Filed: 03/01/17 15:10> Exam - Constitutional Vitals: Period Temp Pulse Resp BP Sys/Taylor Pulse Ox Last 24 Hr 97.5 F-100.1 F 68-91 16-20 94-132/58-74 92-99 Results - Labs CBC & BMP: 03/01/17 04:30 03/01/17 04:30
[2017-03-01] MEDS: oxyCODONE/ACETAMINOPHEN 5-325 MG TABLET PO PRN (13:48)
[2017-03-01] MEDS: ROSUVASTATIN 20 MG TABLET PO SCH (21:37)
[2017-03-01] MEDS: CARVEDILOL 3.125 MG TABLET PO SCH (21:38)
[2017-03-02] MEDS: oxyCODONE/ACETAMINOPHEN 5-325 MG TABLET PO PRN (03:11)
[2017-03-02] MEDS: KETOROLAC 30 MG/1 ML VIAL IV SCH (05:42)
[2017-03-02 05:43] LABS: Calcium 8.2 MG/DL (8.5-10.1); Osmolality,Calculated 285.3 MOS/KG (273-304); Potassium 3.5 MMOL/L (3.5-5.1)
[2017-03-02] MEDS ORDERED: LOSARTAN 50 MG TABLET PO SCH (09:00)
[2017-03-02] MEDS: MAGNESIUM CHLORIDE 64 MG TABLET PO SCH (09:01)
[2017-03-02] MEDS: THIAMINE 100 MG TABLET PO SCH (09:02)
[2017-03-02] MEDS: FERROUS SULFATE 325 MG TABLET PO SCH (09:02)
[2017-03-02] MEDS: FOLIC ACID 1 MG TABLET PO SCH (09:02)
[2017-03-02] MEDS: DOCUSATE SODIUM 100 MG CAPSULE PO SCH (09:03)
[2017-03-02] MEDS: MULTIVITAMIN (CENTRUM) TABLET PO SCH (09:04)
[2017-03-02] MEDS: ASPIRIN EC 325 MG TABLET PO SCH (09:04)
--- NOTE | 2017-03-02 09:10 | Discharge Summary ---
Hospital Course - Hospital Course Hospital Course: Patient is a 66-year-old man who presented for evaluation of a positive exercise test and increasing symptoms of chest discomfort. He was admitted by Dr. lange who performed cardiac catheterization demonstrating critical coronary disease with a high-grade circumflex occlusion and an ostial right coronary occlusion. His LAD is totally occluded and not visible. Patient was referred for bypass surgery. Past medical history review of systems social history and family history are documented in his admission documents. Hospital course: Patient was taken to surgery where two-vessel bypass grafting was carried out with grafts to the obtuse marginal and right coronary arteries. The anterior descending coronary artery was not bypassable. Patient's postoperative course was entirely uncomplicated and the patient was discharged home on the fourth postoperative day with instructions to return for follow-up in 1 month. Discharge medications are listed below. Specialty Discharge - Follow Up or Referrals Follow up with: Meng Desai MD [Physician] - Michele Sotelo MD [Physician] - 1 Month Discharge Plan - Discharge Data Condition at Discharge: Stable Discharge Diet: advance to your usual diet Activity: resume usual activities as tolerated Hygiene: no restrictions Weight Bearing at Discharge: full weight bearing Driving: not for (10 days) - Discharge Medications New Carvedilol [Coreg] 3.125 mg PO BID tablet oxyCODONE/ACETAMINOPHEN 5-325 [Percocet 5-325] 1 tablet PO Q4H PRN tablet PRN Reason: Pain Mild (1-3) Rosuvastatin [Crestor] 40 mg PO BEDTIME #30 tablet Continue Aspirin [Ecotrin] 81 mg PO DAILY Losartan/Hydrochlorothiazide [Losartan-Hctz 50-12.5 mg Tab] 1 each PO DAILY Esomeprazole Magnesium [Nexium] 20 mg PO DAILY - Follow Up or Referral Follow Up: Meng Desai MD [Physician] - - Forms/Instructions Instructions: How to Stop Smoking (GEN), Heart Healthy Diet (GEN), Cigarette Smoking and Your Health (GEN), Coronary Artery Bypass Graft, Help Desk Engineer ( GEN), Sternal Precautions (GEN) Exam - Constitutional Vitals: Period Temp Pulse Resp BP Sys/Taylor Pulse Ox Last 24 Hr 96.6 F-99.1 F 68-85 16-20 95-117/55-68 92-95 Discharge Results Procedures and tests throughout hospitalization: Pending Orders 02/25/17 16:24 Fresh Frozen Plasma Routine Red Blood Cells Leuko Red Routine Single Donor Platelets Routine Type and Screen Routine 03/03/17 04:00 XR chest 2V IN AM BMP w/ Mg [Basic Metabolic Panel w/Mg] IN AM Bilirubin Profile Adult IN AM Comp Blood Count Auto Diff IN AM Comprehensive Metabolic Panel IN AM Hepatic (Liver) Panel IN AM Magnesium IN AM Troponin,CKMB & Ck Total IN AM 03/04/17 04:00 XR chest 2V IN AM BMP w/ Mg [Basic Metabolic Panel w/Mg] IN AM Bilirubin Profile Adult IN AM CBC [Comp Blood Count Auto Diff] IN AM Comp Blood Count Auto Diff IN AM Comprehensive Metabolic Panel IN AM Hepatic (Liver) Panel IN AM Magnesium IN AM Troponin,CKMB & Ck Total IN AM 03/05/17 04:00 BMP w/ Mg [Basic Metabolic Panel w/Mg] IN AM CBC [Comp Blood Count Auto Diff] IN AM Labs on day of discharge: Labs from last 24 hours 03/02/17 03/02/17 03/01/17 07:09 04:30 21:45 Sodium 141 Potassium 3.5 Chloride 104 Carbon Dioxide 29 Anion Gap 11.5 BUN 24 H Creatinine 1.00 GFR Calculation 97 BUN/Creatinine Ratio 24.00 H Glucose 116 H POC Glucose 128 H 149 H Calculated Osmolality 285.3 Calcium 8.2 L Magnesium 2.0 03/01/17 03/01/17 16:34 11:29 Sodium Potassium Chloride Carbon Dioxide Anion Gap BUN Creatinine GFR Calculation BUN/Creatinine Ratio Glucose POC Glucose 114 H 117 H Calculated Osmolality Calcium Magnesium DS: Provider Date of admission: 02/25/17 15:53 Attending physician on admission: Michele Sotelo MD Consults: 02/27/17 08:46 Consult to Cardiac Rehabilitation [CONS] Routine Reason for Cardiac Rehabilitation: Other Consult Comment: Post CABG/heart surgery Consult to Diabetes Center, Educator [CONS] Routine 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
[2017-03-02] MEDS: CARVEDILOL 3.125 MG TABLET PO SCH (09:16)
--- NOTE | 2017-03-02 11:30 | Hospitalist Progress Note ---
Assessment and Plan - Time spent with patient Time spent with patient: Less than 30 minutes (1) Coronary artery disease Status: Chronic Assessment and plan: Mr. Talbert is a 66-year-old male that is now postop day 3 coronary bypass grafting 2 with saphenous vein graft. Patient is doing very well postoperatively and should be going home soon. Hospital medicine has been following for medical management. He did have a bump in his blood sugars postoperatively but they have normalized at this time. His hemoglobin A1c is normal. He is afebrile, vital signs stable, labs all look good. Will continue to follow. Dr. Rivers to see and examined patient and further recommendations to follow. 03/02/2017 patient looks and feels great today. He is being discharged today. His blood sugars are only mildly elevated with a normal hemoglobin A1c. Would recommend him following up with his primary care physician Dr. Huerta in [facility] to follow-up on his blood sugars. Spent approximately 7 minutes discussing smoking cessation with patient and he states he is planning on quitting for good. Patient's case has been discussed with Dr. Rivers and further recommendations to follow. Current Visit: Yes (2) Acid reflux Status: Acute Current Visit: Yes (3) Hypertension Status: Chronic Current Visit: Yes (4) Status post coronary artery bypass graft Status: Acute Current Visit: Yes (5) Dyslipidemia Status: Chronic Current Visit: Yes (6) Tobacco abuse Status: Chronic Current Visit: Yes Hospitalist: Subjective Interval history: Patient looks and feels great. He states Dr. Tejeda can let him go home today. Exam - Constitutional Vitals: Period Temp Pulse Resp BP Sys/Taylor Pulse Ox Last 24 Hr 96.6 F-99.1 F 68-85 16-20 95-117/55-68 92-95 Exam: 66-year-old male, no acute distress, alert and oriented Chest clear, well-healing midline incision, CV regular rate and rhythm Abdomen soft nontender Extremities no edema Results - Labs CBC & BMP: 03/01/17 04:30 03/02/17 04:30 Lab Results: I have reviewed the past 24 hour labs Quality Measures - VTE Contraindication to Pharmacological VTE Prophylaxis: High Risk of Bleeding Specialty Discharge - Follow Up or Referrals Follow up with: Michele Sotelo MD [Physician] - 1 Month Meng Desai MD [Physician] - MD Bradley [Other] - 2 Weeks (Follow-up elevated blood sugars with normal hemoglobin A1c)
[2017-03-02 12:07] VITALS: BP 119/63
== END 2017-03-02 12:49 | disposition home health service (06) | DRG 234 ==
LOC: N.CL 09:49 → N.TELEN 14:36 → N.CVR 02-26 11:00 → N.TELES 02-27 11:01
PROVIDERS: ATTEND Internal Medicine Cardiovascular Disease